=== PATIENT | female | born 1940 | race Caucasian/White ===

== ENCOUNTER → 2023-10-20 11:22 | Outpatient (REF) | payer MEDICARE, OTHER, SELFPAY | LOC: RAD 11:22 | PROVIDERS: ATTENDING PHYSICIAN Internal Medicine Critical Care Medicine; FAMILY PHYSICIAN Family Medicine | DX: J84.9 Interstitial pulmonary disease, unspecified (principal) | CPT/HCPCS: 71046 ==

== ENCOUNTER → 2024-05-11 11:11 | Outpatient (REF) | payer MEDICARE, OTHER, SELFPAY | LOC: RCS 11:11 | PROVIDERS: ATTENDING PHYSICIAN Internal Medicine Interventional Cardiology; FAMILY PHYSICIAN Family Medicine | DX: I35.0 Nonrheumatic aortic (valve) stenosis (principal) | CPT/HCPCS: 93306 ==

== ENCOUNTER → 2024-06-02 09:52 | Outpatient (REF) | payer MEDICARE, OTHER, SELFPAY | LOC: RAD 09:52 | PROVIDERS: ATTENDING PHYSICIAN Surgery Vascular Surgery; FAMILY PHYSICIAN Family Medicine | DX: I73.9 Peripheral vascular disease, unspecified (principal); I65.29 Occlusion and stenosis of unspecified carotid artery; I25.10 Atherosclerotic heart disease of native coronary artery without angina pectoris | CPT/HCPCS: 93880; 93922; 93925 ==

== ENCOUNTER 2024-06-19 13:46 | Inpatient (IN) | payer MEDICARE, OTHER, SELFPAY ==
[2024-06-19] VITALS (9 sets, daily range): BP systolic 130–164; BP diastolic 41–73; BMI 29.6
--- NOTE | 2024-06-19 10:23 | ED.GENMED ---
History of Present Illness
General
Chief Complaint: Breathing Problem
Time Seen by Provider: 06/19/24 10:10
History of Present Illness
History of Present Illness:
84-year-old female with history of COPD on 2 L O2 nighttime, hypertension, hyperlipidemia presenting to the emergency department for difficulty breathing. Patient reports symptoms for the past 4 days. Reports productive cough, denies fever.
Denies any previous admissions for her COPD. Today she did notice blood-tinged sputum, which prompted her to come to the hospital. When medics arrived, patient was satting in the 80s on her 2 L. Patient denying any chest pain. Patient denies any
known sick contacts. She denies abdominal pain or GI symptoms. She denies additional acute medical complaints
Past History
Past History
ED Past Medical History: CAD, Cancer, COPD, GERD, HTN, Hypercholesterolemia, Other (Peripheral vascular disease, TIA) and Other
ED Past Surgical History: Cholecystectomy, Gynecological (hysterectomy), Tonsilectomy, Urological and Other (right carotid endarterectomy in 2018, iliac stent placement twice in 2019)
Social History
Tobacco: Former smoker (distant cigarette use ending in 1986)
Alcohol: None
Drug: None
Personal: Other
Living: with family
Employment: Retired
Family History
Family History: Other (reviewed and Noncontributory)
Phy Exam
Physical Exam
Physical Exam:
General: Well-appearing, no clinical signs of dehydration, nontoxic and in no acute distress
HEENT: protecting airway
Neck: appears supple
CV: Normal heart rate, regular rhythm
Resp: Mild increased work of breathing, adequate air movement bilaterally without any expiratory wheezing
Abd: Soft and non-distended, no tenderness to palpation
Extremities: No deformities, no swelling, no erythema
Neuro: alert, no focal neurologic deficit
: deferred
Rectal: deferred
Psych: Normal affect
Skin: Intact
Scores
Heart Failure Risk
Heart Failure Risk Score: Yes
History of Stroke or TIA: No
History of intubation for respiratory distress: No
Heart rate on ED arrival >/= 110: No
SaO2 <90% on arrival on room air: Yes
HR >/=110 during 3min walk test (or too ill to perform test): Yes
ECG has acute ischemic changes: No
Urea >/=12mmol/L (BUN 33.6mg/dL): No
Serum CO2>/=35mmol/L: No
Troponin I or T elevated to GA Level (0.4mg/dL): No
NT-proBNP >/=5,000ng/L (5,000pg/ml): No
HF Risk Score: 3
Admission Status: HIGH RISK 15.9% Consider SNF treatment or admission to hospital
Sepsis
Sepsis Screening
Sepsis Assessment: Sepsis Ruled Out
Sepsis Screen
Sepsis Screen: Sepsis Ruled Out
Date: 06/19/24
Time: 17:22
Course
Orders/Labs/Results
Orders:
Orders
06/19/24 10:11
Electrocardiogram (*1) Urgent
Reason for Study: Other
Other Reason for Exam: Respiratory Distress
Cardiac Monitoring- Treatment ONCE
EKG- Treatment ONCE
IV Insert/Care/Rem.- Treatment PRN
CR Chest - 2 Views Urgent
Comment:
Reason For Exam: respiratory distress
O2 Therapy [RESP] Urgent
Titrate/Wean O2 to maintain O2 sat greater than (%): 93
Special Instructions: TO MAINTAIN CONTINUOUS O2 SATS >/= 93%
Pulse Ox/cont/shift [RESP] Urgent
Quantity: 1
Special Instructions: continuous pulse ox
06/19/24 10:22
Complete Blood Count/With Diff Urgent
Comprehensive Metabolic Panel Urgent
NT-proBNP Urgent
PT/INR [Prothrombin Time] Urgent
Troponin I Urgent
06/19/24 10:27
COVID-19 Antigen Urgent
Source: Nasal Swab
Influenza A+B Rapid Molecular Urgent
ESDRAS Source: Nasal Swab
Specimen Description:
06/19/24 11:41
Azithromycin 500 mg/250 ml [Zithromax Infusion] 500 mg in 250 ml IV NOW
CefTRIAXone [Rocephin] 1,000 mg IV NOW STA
Furosemide [Lasix] 40 mg IV ONCE ONE
06/19/24 13:07
Add On- LAB Urgent
Tests Added?: procalcitonin
06/19/24 13:25
Procalcitonin Urgent
Comment: ADD ON
06/19/24 13:33
Admit/Transfer Patient As Directed
Co-Sign Provider:
Level of Care: Inpatient admission
Assign to:: Telemetry
Physician / Group: Hospitalist
Diagnosis: respiratory distress
Reason for Telemetry: Subacute Heart Failure
Date to Stop Telemetry: 06/21/24
Time to Stop Telemetry: 11:00
Reason for Hospitalization: Respiratory distress
Expected length of stay greater than two midnights?: Yes
ELOS- Estimated Length of Stay in days: 3
I certify the patient meets the requirements for IP care: Yes
PRN Pain Medication Management As Directed
May give lesser potent ordered pain med per pt: Yes
preference::
Protocol:: Medication orders for pain may be administered in a
manner that supports deferring to patient preference
when the pt is:
- Requesting an ordered lesser potent pain medication.
Least to most potent pain medications are defined
as: acetaminophen < NSAID < tramadol < opioids
(morphine, oxycodone, hydromorphone).
- Requesting a lesser dose of the same medication IF
ORDERED.
- Requesting a less intrusive route of administration
if both routes are prescribed by the provider (PO <
IV).
06/19/24 13:36
Code Status As Directed
Resuscitation Status: Full Code
06/19/24 14:39
Troponin I Q6H
Comment: at admission & every 6 hours x 2 (3 total), ECG to be done with each level
Acetaminophen [Tylenol] 650 mg PO Q4HPRN PRN
Dicyclomine [Bentyl] 20 mg PO DAILYPRN PRN
Ipratropium/Albuterol Sulfate [Duoneb] 3 ml INH R Q4HPRN PRN
06/19/24 14:39
HF DIETARY CONSULT Routine
HF EDUCATOR CONSULT Routine
Comment:
Respiratory Culture/Gram Stain Routine
ESDRAS Source: Sputum
Specimen Description:
Activity As Directed
Activity Level: Out of Bed-Early Mobility
Activity As Directed
Activity Level: With Assistance
Intake/ Output As Directed
Frequency: Per unit guidelines
Patient Education As Directed
Type: CHF folder
Comment: give on admission. Document in Interdisciplinary Education record
Pneumatic Compression Sleeves As Directed
Type: Knee high
Sleep Apnea Assessment by RN As Directed
Comment:
Physician Instructions:
Vital Signs As Directed
Frequency: Per unit guidelines
Weight As Directed
Frequency: Daily
Type of Scale: Standing Scale
Comment: Daily morning weight. If unable to stand, use balanced bed scale.
Weight As Directed
Frequency: Once
Comment: on admission
Pulse Ox/cont/shift [RESP] Routine
Quantity: 1
Special Instructions: Daily pulse oximetry at rest. If greater than 92% at rest also obtain pulse oximetry
while ambulating as tolerated.
Pt Eval And Treat Routine
Treatment: eval gait
Activity Level: With Assistance
DX Deep Vein Thrombosis Video Routine
06/19/24 Dinner
Cholesterol Lowering
At Your Request: Limited Participation
Does patient need a safe tray?: No
Cholesterol Lowering: Sodium, 2 Gram
06/19/24 16:00
Dexamethasone Sod Phosphate [Decadron] 4 mg IV Q8
Furosemide [Lasix] 20 mg IV BID AT 0800,1600
HydrALAZINE [Apresoline] 25 mg PO TID
06/19/24 18:00
Atorvastatin [Lipitor] 40 mg PO QPM
06/19/24 20:00
Amlodipine [Norvasc] 5 mg PO BID
Guaifenesin [Mucinex] 600 mg PO Q12
Metoprolol Xl [Toprol Xl] 25 mg PO BID
06/19/24 20:39
Troponin I Q6H
Comment: at admission & every 6 hours x 2 (3 total), ECG to be done with each level
06/19/24 22:00
Ezetimibe [Zetia] 10 mg PO HS
06/20/24 02:39
Troponin I Q6H
Comment: at admission & every 6 hours x 2 (3 total), ECG to be done with each level
06/20/24 06:00
Basic Metabolic Panel IN AM
Complete Blood Count/No Diff IN AM
06/20/24 08:00
Aspirin Low Dose EC [Aspir Low (Enteric Coated)] 81 mg PO DAILY
Clopidogrel Bisulfate [Plavix] 75 mg PO DAILY
Furosemide [Lasix] 20 mg PO DAILY
Pantoprazole [Protonix] 40 mg PO DAILY
06/20/24 11:00
Losartan [Cozaar] 50 mg PO DAILY@1100
06/20/24 12:00
Azithromycin 500 mg/250 ml [Zithromax Infusion] 500 mg in 250 ml IV Q24H
CefTRIAXone [Rocephin] 1,000 mg IV Q24H
06/21/24 11:00
DC Protocol for Telemetry ONCE
Abnormal Lab Results
06/19/24
10:22
MCHC 32.8 L g/dL
(33.0-37.0)
Abs Immat Gran (auto) 0.1 H 10^3/uL
(0-0.05)
Absolute Neuts (auto) 7.9 H 10^3/uL
(1.4-6.5)
Absolute Lymphs (auto) 1.1 L 10^3/uL
(1.2-3.4)
Absolute Monos (auto) 0.9 H 10^3/uL
(0.1-0.6)
Neutrophils % 78.2 H %
(42.2-75.2)
Lymphocytes % 10.9 L %
(20.5-51.1)
BUN 25 H mg/dl
(7-17)
Total Bilirubin 1.9 H mg/dl
(0.2-1.3)
06/19/24 10:22
06/19/24 10:22
Vital Signs
Initial and Last Documented VS:
Initial Vital Signs
BP
130/73
06/19/24 10:11
Last Documented Vital Signs
Temp Pulse Resp BP Pulse Ox
98.6 F 61 18 145/56 94
06/19/24 15:35 06/19/24 16:21 06/19/24 15:35 06/19/24 16:21 06/19/24 17:05
MDM/Problems Addressed
MDM/Problems Addressed:
84-year-old female presenting for shortness of breath and cough. Vital signs on arrival significant for hypoxia.
On exam, patient stabilized on supplemental O2. Mild increased work of breathing, however does have adequate air movement. Does not appear to be in a COPD exacerbation. For this reason in the setting of productive cough, concern for possible
infectious pathology, viral versus bacterial pneumonia. EKG obtained, nonischemic. Plan for laboratory analysis, chest x-ray imaging, viral swabs
11:40 -viral swabs negative. Chest x-ray concerning for superimposed pneumonia on the right side versus pulmonary edema from congestive heart failure. BNP is elevated. Both are diagnostic considerations. In the setting of cough, will start
patient on antibiotics for community-acquired pneumonia. Will also administer dose of Lasix. Holding IV fluids for possible pulmonary edema, no criteria for sepsis or septic shock at this time. Plan for admission for increased oxygen requirements
and concern for pneumonia versus volume overload state
*EKG
Interpreted by ED Provider?: Yes
EKG Intrepretation Date: 06/19/24
EKG Intrepretation Time: 10:29
Interpretation: normal
Heart Rate: 61
Rate: normal
Rhythm: sinus
[place]: normal axis
Interval: normal interval
QRS Pattern: normal QRS
Ischemia: no ischemia
*Critical Care Note
Total Time (30-74mins, 75-104mins- exclusive of procedures): Not Applicable
ED Attending Note
-
Portions of this chart may have been created with voice recognition software.� Occasional wrong word or��sound alike� substitutions may have occurred due to the inherent limitations of voice recognition software.
Discharge Plan
Departure
Patient Disposition: Admit
Date of Disposition: 06/19/24
Time of Disposition: 11:45
Presentation/result/management discussed w/ accepting MD/DO: Hospitalist
Patient with high blood pressure during this ER visit?: No
Condition: Fair
Discharge Problem:
Pulmonary edema, Community acquired pneumonia, Hypoxia
Interventions
Interventions:
*Risk Screen - Suicide Last Done: 06/19/24 15:03
*General Assessment Last Done: 06/19/24 10:13
*Neglect/Abuse Screening Last Done: 06/19/24 10:13
ED- Fall Risk Assessment Last Done: 06/19/24 14:51
*ED COVID-19 Vaccine History Last Done: 06/19/24 10:13
*Nursing Disposition Last Done: 06/19/24 14:51
ED- Cardiac Assessment Last Done: 06/19/24 10:13
ED- Pulmonary Assessment Last Done: 12/01/24 10:13
Discharge Date and Time
Discharge Date/Time: 06/19/24 14:52
[2024-06-19 10:41] LABS: % Basophils 0.6 % (0-2); % Eosinophils 1.1 % (0-6); % Immature Granulocytes 0.5 % (0-0.5); % Lymphocytes 10.9 % (20.5-51.1); % Monocytes 8.7 % (1.7-9.3); % Neutrophils 78.2 % (42.2-75.2); Absolute Basophils 0.1 10^3/uL (0-0.2); Absolute Eosinophils 0.1 10^3/uL (0-0.7); Absolute Immature Granulocytes 0.1 10^3/uL (0-0.05); Absolute Lymphocytes 1.1 10^3/uL (1.2-3.4); Absolute Monocytes 0.9 10^3/uL (0.1-0.6); Absolute Neutrophils 7.9 10^3/uL (1.4-6.5); Hemoglobin 12.8 g/dL (12.0-16.0); INR 0.95; Mean Corp Hgb Conc. 32.8 g/dL (33.0-37.0); Mean Corpuscular Hgb 29.3 pg (27.0-31.0); Mean Corpuscular Volume 89.2 fL (81.0-99.0); Mean Platelet Volume 10.2 fL (7.4-10.4); Nucleated Red Blood Cells % 0 %; Platelet Count 306 10^3/uL (130-400); Red Blood Cell Count 4.37 10^6/uL (4.20-5.40); Red Cell Dist. Width 13.2 % (11.5-14.5); White Blood Cell Count 10.1 10^3/uL (4.8-10.8)
[2024-06-19 10:44] LABS: ALT (SGPT) 16 U/L (0-35); AST (SGOT) 28 U/L (14-36); Albumin 3.7 g/dl (3.5-5.0); Alkaline Phosphatase 102 U/L (38-126); Blood Urea Nitrogen 25 mg/dl (7-17); Calcium 9.4 mg/dl (8.4-10.2); Carbon Dioxide 22 mmol/L (22-30); Chloride 102 mmol/L (98-107); Estimated Creatinine Clearance 44 ml/min; Glucose 91 mg/dl (70-99); Potassium 4.2 mmol/L (3.5-5.1); Sodium 138 mmol/L (135-145); Total Bilirubin 1.9 mg/dl (0.2-1.3); Total Protein 6.6 g/dl (6.3-8.2); eGFR > 60.00
[2024-06-19 10:55] LABS: NT-proBNP 1830 pg/ml; Troponin I 0.012 ng/ml
[2024-06-19 10:56] LABS: COVID-19 Antigen Negative (Negative)
[2024-06-19] MEDS: ROCEPHIN 1000 MG IV (12:03)
[2024-06-19] MEDS: ZITHROMAX INFUSION 250 IV (12:04)
[2024-06-19] MEDS: LASIX 40 MG IV (12:04)
--- NOTE | 2024-06-19 13:09 | HPS.HSE ---
Family Physician
-
Family Physician: Teresita Martinez
Chief Complaint
-
Cough and weakness
History of Present Illness
84-year-old woman with a history of:
COPD on 2 L O2 nighttime,
hypertension,
hyperlipidemia
presents with difficulty breathing. Symptoms for the past 4 days. Reports productive cough, but denies fever and any previous admissions for her COPD. Today she also had blood-tinged sputum, EMS noted that she was satting in the 80s while on 2L.
She denies any chest pain, any known sick contacts, abdominal pain or GI symptoms or any additional acute medical complaints. At the time of my interview she was coughing, but was able to lie flat. She answered all questions appropriately.
Medical History
Past Medical History
Past Medical History: Reports Other
Additional Past Medical History:
CAD,
Cancer,
COPD,
GERD,
Hypercholesterolemia
TIA
Cholecystectomy,
hysterectomy
Tonsilectomy,
right carotid endarterectomy in 2018,
iliac stent placement twice in 2020
Dyslipidemia Cerebrovascular disease
Centrilobular emphysema
Essential (primary) hypertension
Nonrheumatic aortic (valve) stenosis
Spinal stenosis of lumbar region with neurogenic claudication
Osteopenia of multiple sites
Multiple thyroid nodules
PAD (peripheral artery disease)
Stenosis of carotid artery, unspecified laterality
Venous insufficiency
History of stroke
Pre-diabetes
Wax in ear
Interstitial lung disease
Restrictive lung disease
Mild obstructive sleep apnea
Occlusion and stenosis of bilateral carotid arteries
GERD without esophagitis
Snoring
History of tobacco abuse
Decreased diffusion capacity
Past Surgical History: Reports Other
Additional Past Surgical History:
See above
Social History
Tobacco: Non-smoker
Alcohol: None
Drug: None
Family History
Family History: Not pertinent
Allergies / Home Medications
Allergies reflects when Allergies were last updated in [employer].
Home Medications with original date entered in [facility]
Allergy/Medication List:
Allergies
Allergy/AdvReac Type Severity Reaction Status Date / Time
hydrocodone [From Vicodin] Allergy Unknown Verified 06/15/23 00:50
labetalol Allergy Unknown Verified 06/15/23 00:50
Home Medications
clopidogrel 75 mg tablet 75 mg PO DAILY #90 tabs 02/20/20
atorvastatin 40 mg tablet 40 mg PO QPM High cholesterol 11/30/20
ezetimibe 10 mg tablet 10 mg PO HS High cholesterol 11/30/20
amlodipine 5 mg tablet 5 mg PO BID Blood Pressure 06/15/23
furosemide 20 mg tablet (Lasix) 20 mg PO DAILY Fluid Retention/Swelling 06/15/23
hydralazine 25 mg tablet 25 mg PO TID Blood Pressure 06/15/23
losartan 50 mg tablet 50 mg PO DAILY Blood Pressure 06/15/23
metoprolol succinate 25 mg tablet,extended release 24 hr (Toprol XL) 25 mg PO BID Blood Pressure 06/15/23
aspirin 81 mg tablet,delayed release 81 mg PO DAILY 06/19/24
dicyclomine 20 mg tablet 20 mg PO DAILYPRN PRN intestinal spasms 06/19/24
pantoprazole 40 mg tablet,delayed release 40 mg PO DAILY 06/19/24
Review of Systems
-
History Source: Patient
A 12 point ROS was completed and negative except as noted: Yes
Physical Exam
Vital Signs
Vital Signs
Temp Pulse Resp BP Pulse Ox
97.8 F 61 18 141/54 94
06/19/24 10:13 06/19/24 12:04 06/19/24 11:06 06/19/24 12:04 06/19/24 11:06
Physical Exam
General: Well Developed, Well Nourished, No Apparent Distress and Respiratory Distress (frequent coughing)
HEENT: NormoCephalic, Nose Appears Normal and Ears Appear Normal
Respiratory: Wheezes, Rhonchi and Crackles
Cardiac: S1/S2 and Regular Rhythm
GI: Soft, Non Tender and Non Distended
Musculoskeletal: No Clubbing, No Cyanosis and No Edema
Skin: Warm and Dry; No Rash or Jaundice
Neuro: Awake, Alert, Oriented and AO x 3
Psych: Calm
Laboratory Results
-
06/19/24 10:22
06/19/24 10:22
Laboratory Results
PT 13.0 Sec (11.4-14.6) 06/19/24 10:22
INR 0.95 06/19/24 10:22
Total Bilirubin 1.9 mg/dl (0.2-1.3) H 06/19/24 10:22
AST 28 U/L (14-36) 06/19/24 10:22
ALT 16 U/L (0-35) 06/19/24 10:22
Alkaline Phosphatase 102 U/L (38-126) 06/19/24 10:22
Troponin I 0.012 ng/ml 06/19/24 10:22
Data Reviewed
-
Lab Data: Labs Reviewed by me
Impression/Plan
-
IMPRESSION:
84 woman with cough, increased O2 requirement, with probable CA-PNA. Significant findings:
BUN/Creat 25/0.8
BNP 1830 (Last one measured in 2022 326)
Covid (-)
Flu (-)
CXR: Diminished degree of inspiration. Congestive heart failure with asymmetric right upper lobe edema versus superimposed right upper lobe pneumonia.
Echo from 05/11/24:
CONCLUSIONS
Normal left ventricular chamber size. Normal left ventricular systolic
function. No gross regional wall motion abnormalities. Left ventricular
ejection fraction is 60-65% by visual assessment. Mild concentric left
ventricular hypertrophy. Stage II diastolic dysfunction suggestive of abnormal
relaxation and increased filling pressures.
Normal right ventricular size and function.
Mild aortic stenosis. Mild to moderate aortic regurgitation.
Compared to prior study dated 06/15/2023, mild aortic stenosis is now present
PLAN:
1. increased O2 requirement and cough, likely multifactorial, a mix of CA-PNA, COPD and CHF
For CA-PNA
ABX per protocol
Check pro-calcitonin
Cough med
For probable COPD exacerbation
Nebs
Steroids
For CHF (acute on chronic with preserved EF)
IV lasix
Tele
JAYLEN (given h/o CAD and extra load)
Recent echo on file, will not order a new one immediately
2. BUN/Creat > 20, 25/0.8
Recheck in am after diuresis today
3. Essential HTN - pressures in good range
Continue home meds
Full code
VCD for DVTp
[2024-06-19 13:59] LABS: Procalcitonin < 0.05 ng/ml (0.0-0.25)
--- NOTE | 2024-06-19 15:54 | CM ---
Patient seen at bedside.
IA completed.
Lives alone in a 1 story home, 0 steps to enter
PLOF: Independent, ambulates outside with a cane
DME: Cane, home 02 ([facility])
PCP: Teresita Martinez
Pharmacy: [facility] [address], [place]
PLAN: CM to follow for needs.
[2024-06-19] MEDS: DECADRON 4 MG IV ×2 (16:21→23:12)
[2024-06-19] MEDS: APRESOLINE 25 MG PO ×2 (16:21→22:33)
[2024-06-19] MEDS: LASIX 20 MG IV (16:21)
[2024-06-19] MEDS: LIPITOR 40 MG PO (16:21)
[2024-06-19] MEDS: NORVASC 5 MG PO (19:52)
[2024-06-19] MEDS: MUCINEX 600 MG PO (19:52)
[2024-06-19] MEDS: TOPROL XL 25 MG PO (19:55)
--- NOTE | 2024-06-19 20:00 | PTCARENOTE ---
Pt due for troponin. Pt hard stick and not able to get lab drawn after multiple attempts. Pt states she doesn't want to keep doing this and she doesn't need it done. Annalise MANJARREZ notified. Will attempt to draw troponin in AM with morning
labs. Will continue with current plan.
--- NOTE | 2024-06-19 22:34 | W.PN.UPDATE ---
Update Note
Progress Note Update
pt refusing repeat troponins
she is a difficult stick and multiple nurses have tried without success. pt refusing any more.
denies chest pain
Will try and add to am labs for now
[2024-06-19] MEDS: ZETIA 10 MG PO (22:38)
[2024-06-20 03:49] VITALS: BP 117/54
[2024-06-20 06:00] VITALS: BMI 28.3
[2024-06-20 07:41] VITALS: BP 137/66
[2024-06-20] MEDS: DECADRON 4 MG IV ×3 (08:26→23:19)
[2024-06-20] MEDS: ASPIR LOW (ENTERIC COATED) 81 MG PO (08:26)
[2024-06-20] MEDS: APRESOLINE 25 MG PO ×2 (08:26→17:16)
[2024-06-20] MEDS: PROTONIX 40 MG PO (08:27)
[2024-06-20] MEDS: TOPROL XL 25 MG PO ×2 (08:27→19:50)
[2024-06-20] MEDS: LASIX 20 MG IV ×2 (08:27→17:18)
[2024-06-20] MEDS: MUCINEX 600 MG PO ×2 (08:27→19:50)
[2024-06-20] MEDS: PLAVIX 75 MG PO (08:27)
[2024-06-20] MEDS: NORVASC 5 MG PO ×2 (08:27→19:50)
[2024-06-20 09:11] LABS: Hemoglobin 12.3 g/dL (12.0-16.0); Mean Corp Hgb Conc. 34.2 g/dL (33.0-37.0); Mean Corpuscular Hgb 29.5 pg (27.0-31.0); Mean Corpuscular Volume 86.3 fL (81.0-99.0); Mean Platelet Volume 9.8 fL (7.4-10.4); Platelet Count 293 10^3/uL (130-400); Red Blood Cell Count 4.17 10^6/uL (4.20-5.40); White Blood Cell Count 5.8 10^3/uL (4.8-10.8)
[2024-06-20 09:38] LABS: Troponin I < 0.012 ng/ml
[2024-06-20 11:43] VITALS: BP 108/47
[2024-06-20] MEDS: COZAAR 50 MG PO (12:53)
[2024-06-20] MEDS: STERILE WATER FOR INJECTION 10 ML IV (13:01)
[2024-06-20] MEDS: ROCEPHIN 1000 MG IV (13:02)
[2024-06-20] MEDS: ZITHROMAX INFUSION 250 IV (13:06)
--- NOTE | 2024-06-20 13:47 | CM ---
Patient seen at bedside with physician. Patient stated that she does not feel ready for discharge. Patient plan is for discharge home with VN vs home with no needs. CM will continue to follow for discharge planning needs.
Plan; home with VN vs home with no needs.
--- NOTE | 2024-06-20 13:53 | W.PN.HOSP.TC ---
Today's Communication/Plan
-
consider pulm/cards consults
hold on echo
cont diuresis
stop ABX
Assessment / Plan
Assessment / Plan
pt is an 84 year old female
acute on chronic hypoxemic resp failure--wears 2L O2 at nighttime--now during the day--possible HFpEF exacerbation--cannot r/o superimposed acute COPD exacerbation--doubt PNA--procalcitonin negative--ECHO just done 05/11/24, will not
repeat--consider cards consult--cont IV lasix for diuresis--cont nebs/steroids--can stop ABX for now--has HX of interstitial/restrictive lung disease per PMH
essential HTN--cont amlodipine, hydralazine, IV lasix, losartan, and toprol XL
HLD--cont zetia and atorvastatin
hx of CVA in past--cont asa/plavix
IBS--bentyl PRN for spasms
GERD--PPI
DVT proph
code status -- FULL CODE
Anticipated Discharge: > 48 hours
Subjective/Interval History
-
Date of Service: June 20, 2024
pt still SOB
Objective Data
-
Labs:
Laboratory Results
06/20/24 06/20/24
08:56 09:41
WBC 5.8
Hgb 12.3
Hct 36.0 L
Plt Count 293
Sodium Cancelled Pending
Potassium Cancelled Pending
Chloride Cancelled Pending
Carbon Dioxide Cancelled Pending
BUN Cancelled Pending
Creatinine Cancelled Pending
Glucose Cancelled Pending
Calcium Cancelled Pending
Vital Signs:
max temp for 24 hours
06/20/24
07:41
Temp 98.5 F
Vital Signs
Temp Pulse Resp BP Pulse Ox
97.7 F 60 18 108/47 92
06/20/24 11:43 06/20/24 12:53 06/20/24 11:43 06/20/24 12:53 06/20/24 11:43
I&O
06/19/24 06/20/24 06/21/24
06:59 06:59 06:59
Intake Total 600 / 600
Balance 600 / 600
Review of Systems
-
All other systems: Reviewed and negative
Respiratory: Reports Trouble Breathing
Physical Exam
-
General: Well Developed, Well Nourished and No Apparent Distress
HEENT: Normocephalic, Atraumatic and Oxygen
Respiratory: Crackles
Cardiac: Regular Rhythm, S1/S2 and Murmur
GI: Soft, Nontender, Nondistended and Normal Bowel Sounds
Musculoskeletal: No Clubbing, No Cyanosis and No Edema
Neuro: Awake and Alert
Psych: Calm
[2024-06-20 15:07] VITALS: BP 113/86
[2024-06-20 17:17] LABS: Blood Urea Nitrogen 50 mg/dl (7-17); Calcium 9.2 mg/dl (8.4-10.2); Carbon Dioxide 25 mmol/L (22-30); Chloride 99 mmol/L (98-107); Estimated Creatinine Clearance 32 ml/min; Glucose 189 mg/dl (70-99); Potassium 4.1 mmol/L (3.5-5.1); Sodium 137 mmol/L (135-145); eGFR 49.24
[2024-06-20] MEDS: LIPITOR 40 MG PO (17:19)
[2024-06-20 19:34] VITALS: BP 104/51
[2024-06-20] MEDS: ZETIA 10 MG PO (21:45)
[2024-06-20] MEDS: APRESOLINE PO (21:52)
[2024-06-20 23:20] VITALS: BP 104/41
[2024-06-21] VITALS (7 sets, daily range): BP systolic 93–125; BP diastolic 41–78; PULSE 66; O2SAT 95; BMI 28.4
[2024-06-21 05:18] LABS: Mean Corp Hgb Conc. 32.4 g/dL (33.0-37.0); Mean Corpuscular Hgb 29.2 pg (27.0-31.0); Mean Platelet Volume 10.5 fL (7.4-10.4); Platelet Count 341 10^3/uL (130-400); Red Blood Cell Count 4.11 10^6/uL (4.20-5.40); White Blood Cell Count 11.7 10^3/uL (4.8-10.8)
[2024-06-21 05:41] LABS: Blood Urea Nitrogen 61 mg/dl (7-17); Calcium 9.3 mg/dl (8.4-10.2); Carbon Dioxide 23 mmol/L (22-30); Chloride 102 mmol/L (98-107); Estimated Creatinine Clearance 32 ml/min; Glucose 156 mg/dl (70-99); Magnesium 2.5 mg/dl (1.6-2.3); Potassium 4.3 mmol/L (3.5-5.1); Sodium 140 mmol/L (135-145); eGFR 49.24
[2024-06-21] MEDS: PROTONIX 40 MG PO (09:10)
[2024-06-21] MEDS: NORVASC 5 MG PO ×2 (09:10→21:35)
[2024-06-21] MEDS: APRESOLINE 25 MG PO ×2 (09:10→17:03)
[2024-06-21] MEDS: MUCINEX 600 MG PO ×2 (09:10→21:36)
[2024-06-21] MEDS: ASPIR LOW (ENTERIC COATED) 81 MG PO (09:10)
[2024-06-21] MEDS: TOPROL XL 25 MG PO (09:10)
[2024-06-21] MEDS: PLAVIX 75 MG PO (09:11)
[2024-06-21] MEDS: DECADRON 4 MG IV ×2 (09:11→17:03)
[2024-06-21] MEDS: LASIX 20 MG IV (09:11)
[2024-06-21] MEDS: COZAAR 50 MG PO (11:31)
--- NOTE | 2024-06-21 13:58 | W.PN.HOSP.TC ---
Today's Communication/Plan
-
consult cards/pulm
weights down and on steroids, lasix--no improvement
Assessment / Plan
Assessment / Plan
pt is an 84 year old female
acute on chronic hypoxemic resp failure--wears 2L O2 at nighttime--now during the day--possible HFpEF exacerbation--cannot r/o superimposed acute COPD exacerbation--doubt PNA, stopped abx--procalcitonin negative--ECHO just done 05/11/24, will not
repeat-- cards/pulm consult--cont IV lasix for diuresis, weights down--cont nebs/steroids---has HX of interstitial/restrictive lung disease per PMH--would keep pulse ox > 92%, wean O2 as able
essential HTN--cont amlodipine, hydralazine, IV lasix, losartan, and toprol XL
HLD--cont zetia and atorvastatin
hx of CVA in past--cont asa/plavix
IBS--bentyl PRN for spasms
GERD--PPI
DVT proph
code status -- FULL CODE
Anticipated Discharge: 24 - 48 hours
Subjective/Interval History
-
Date of Service: June 21, 2024
pt NO better despite steroids and diuretics
Objective Data
-
Labs:
Laboratory Results
06/21/24
04:44
WBC 11.7 H
Hgb 12.0
Hct 37.0
Plt Count 341
Sodium 140
Potassium 4.3
Chloride 102
Carbon Dioxide 23
BUN 61 H
Creatinine 1.1 H
Glucose 156 H
Calcium 9.3
Vital Signs:
Selected Entries
06/19/24
10:13 06/21/24
04:07 06/21/24
05:30
Temp 97.9 F
Actual Weight 68.7 kg 65.969 kg
Vital Signs
Temp Pulse Resp BP Pulse Ox
97.6 F 60 20 125/78 93
06/21/24 11:18 06/21/24 11:18 06/21/24 11:18 06/21/24 11:18 06/21/24 11:18
I&O
06/20/24 06/21/24 06/22/24
06:59 06:59 06:59
Intake Total 600 / 600 1120 / 1120
Balance 600 / 600 1120 / 1120
Review of Systems
-
Respiratory: Reports Trouble Breathing
Physical Exam
-
General: Well Developed, Well Nourished and No Apparent Distress
HEENT: Normocephalic and Atraumatic
Respiratory: Decreased Breath Sounds; Negative Wheezes or Crackles
Cardiac: Regular Rhythm and S1/S2
GI: Soft, Nontender, Nondistended and Normal Bowel Sounds
Musculoskeletal: No Clubbing, No Cyanosis and No Edema
Neuro: Awake and Alert
--- NOTE | 2024-06-21 14:02 | CM ---
Patient seen at bedside with physician. Patient c/o that she does not feel much better. Patient for further assessment, per physician. Patient has home O2 at night, but currently is on O2 /. CM will continue to follow for discharge planning needs.
Plan; home with VN/ watch for home O2 needs.
--- NOTE | 2024-06-21 15:29 | CON.CAR ---
Addendum entered and electronically signed by Chapin Abbasi MD 06/21/24 16:13:
Patient seen and examined
Agree with [facility] Brian's note and assessment
[facility] Brian's plan
Examination:
Physical Exam
General: no apparent distress, not acutely ill
Neck: supple. no meningeal signs. normal psoterior pharynx
Heart: s1/s2 regular rate and rhythm, no murmur. equal radial pulses.
Lungs: no acute respiratory distress. clear bilaterally
Abdomen: normal bowel sounds. not tender. no CVAT
Neuro: alert and oriented. no focal neurological deficits
Skin: no rash
Psychiatric: well kept. interactive and cooperative
Extremities: no edema. no calf tenderness. negative homans. good distal pulses
Assessment:
Presentation with SOB
Acute on chronic hypoxic respiratory failure
Acute COPD exacerbation
Concern for PNA
Emphysema/Restrictive lung disease, chronically on 2L NC nocturnally
PAD
known TYPE CUTTER LICA and s/p right CEA 10/2017
s/p iliac stents 08/2019 and 02/2020Chronic Plavix therapy for PAD and h/o CVA
h/o CVA
HTN
Multiple medication intolerances
Hyperlipidemia
Mild to mod aortic insufficiency without stenosis by echo 05/26/23
h/o breast cancer with lumpectomy and radiation
ECHO 05/11/24: EF 60-65%, mild cLVH, stage 2 diastolic dysfunction, mild , mild to mod AR
Plan:
-Patient presents with shortness of breath. She is being treated for possible pneumonia, acute COPD exacerbation, as well as heart failure. Cardiology consulted to evaluate if felt to have component of heart failure as not improved with IV Lasix
-She appears to be dry as evidenced by drop in blood pressure trends, as well as bump in BUN/creatinine. Would hold further IV Lasix and consider resuming outpatient p.o. Lasix 20 mg daily as of , 06/23/2024 pending BUN/Cr trends
-recent echo from 04/2024 with results as above
-Recommend pulmonary evaluation. continue treatment of COPD/PNA per primary service
-may need continuous supp O2 moving forward. eval for home O2 prior to DC
-follow BP trends and resume OP hydralazine as able
-OP cardiac follow up as planned
-d/w nursing. d/w patient and daughter at bedside
Original Note:
Consultation
Consultation Request
Date/Time Consultation Performed: 06/21/24
Requesting Provider: Dr. Yeh
Performing Provider: Criss Brian PA-C for Dr. Abbasi
Reason for Consultation: SOB
Medical History
-
Chief Complaint: SOB
History of Present Illness:
Patient is an 84 yo F with PMH of PAD status post right CEA and iliac stenting, history of CVA on chronic dual antiplatelet therapy with aspirin and Plavix, hypertension, hyperlipidemia, mild to moderate AI, emphysema on 2 L nocturnal supplemental
O2 who presented to [facility] with worsening dyspnea on exertion over the last month. She reports even with doing things such as bending down she noted she was winded. She reports compliance with p.o. Lasix 20 mg daily. proBNP 1830 on
arrival. CXR read as possible CHF vs superimposed RUL PNA. She was admitted and being treated for possible CHF exacerbation in addition to COPD exacerbation and possible pneumonia. Cardiology consulted to evaluate component of acute CHF as patient
does not feel improvement in breathing with current treatments. Denies chest discomfort. Denies weight gain. Reports chronic right lower extremity edema in the setting of known PAD. Last echo from April with preserved EF, mild to moderate AI.
PMH:
PAD
known TYPE CUTTER LICA and s/p right CEA 10/2017
s/p iliac stents 08/2019 and 02/2020
Chronic Plavix therapy for PAD and h/o CVA
h/o CVA
HTN
Multiple medication intolerances
Hyperlipidemia
Mild to mod aortic insufficiency without stenosis by echo 05/26/23
Emphysema, chronically on 2L NC nocturnally
h/o breast cancer with lumpectomy and radiation
Past Medical History
Past Medical History: Other (in HPI)
Past Surgical History: Gynecological (hysterectomy, lumpectomy), Tonsilectomy and Other (s/p right CEA 10/19/17)
Social History
Tobacco: Former Smoker
Living: Alone
Employment: Retired
Family History
Family History: CAD
Allergies / Home Medications
Allergy/AdvReac Type Severity Reaction Status Date / Time
hydrocodone [From Vicodin] Allergy Unknown Verified 06/15/23 00:50
labetalol Allergy Unknown Verified 06/15/23 00:50
�Medication �Instructions �Recorded �Confirmed �Type
clopidogrel 75 mg tablet 75 mg PO DAILY #90 tabs 02/20/20 06/19/24 Rx
atorvastatin 40 mg tablet 40 mg PO QPM High cholesterol 11/30/20 06/19/24 History
ezetimibe 10 mg tablet 10 mg PO HS High cholesterol 11/30/20 06/19/24 History
amlodipine 5 mg tablet 5 mg PO BID Blood Pressure 06/15/23 06/19/24 History
furosemide 20 mg tablet (Lasix) 20 mg PO DAILY Fluid 06/15/23 06/19/24 History
Retention/Swelling
hydralazine 25 mg tablet 25 mg PO TID Blood Pressure 06/15/23 06/19/24 History
losartan 50 mg tablet 50 mg PO DAILY@1100 Blood Pressure 06/15/23 06/19/24 History
metoprolol succinate 25 mg 25 mg PO BID Blood Pressure 06/15/23 06/19/24 History
tablet,extended release 24 hr
(Toprol XL)
aspirin 81 mg tablet,delayed 81 mg PO DAILY 06/19/24 06/19/24 History
release
dicyclomine 20 mg tablet 20 mg PO DAILYPRN PRN intestinal 06/19/24 06/19/24 History
spasms
pantoprazole 40 mg tablet,delayed 40 mg PO DAILY 06/19/24 06/19/24 History
release
Review of Systems
-
History Source: Patient and Family
All other systems: Negative unless noted
Physical Exam
Vital Signs
Temp Pulse Resp BP Pulse Ox
97.8 F 63 20 115/59 94
06/21/24 15:14 06/21/24 15:14 06/21/24 15:14 06/21/24 15:14 06/21/24 15:14
Lab Results
06/21/24 04:44
06/21/24 04:44
Troponin I < 0.012 ng/ml 06/20/24 08:56
[facility] Pept 1830 pg/ml 06/19/24 10:22
Physical Exam
General: No Apparent Distress, Comfortable and Other (on supp O2)
HEENT: Normocephalic, Anicteric and Moist Mucous Membranes
Respiratory: Crackles (B/L bases) and Non Labored Respirations
Cardiac: S1/S2, Regular Rhythm and Murmur
GI: Soft, Non Tender, Non Distended and Normal Bowel Sounds
Musculoskeletal: No Clubbing, No Cyanosis and No Edema
Skin: Warm and Dry
Neuro: AO x 3
Impression / Plan
-
Primary Farmworker Fur: Dr. Richards
Assessment:
Presentation with SOB
Acute on chronic hypoxic respiratory failure
Acute COPD exacerbation
Concern for PNA
Emphysema/Restrictive lung disease, chronically on 2L NC nocturnally
PAD
known TYPE CUTTER LICA and s/p right CEA 10/2017
s/p iliac stents 08/2019 and 02/2020
Chronic Plavix therapy for PAD and h/o CVA
h/o CVA
HTN
Multiple medication intolerances
Hyperlipidemia
Mild to mod aortic insufficiency without stenosis by echo 05/26/23
h/o breast cancer with lumpectomy and radiation
ECHO 05/11/24: EF 60-65%, mild cLVH, stage 2 diastolic dysfunction, mild , mild to mod AR
Plan:
-Patient presents with shortness of breath. She is being treated for possible pneumonia, acute COPD exacerbation, as well as heart failure. Cardiology consulted to evaluate if felt to have component of heart failure as not improved with IV Lasix
-She appears to be dry as evidenced by drop in blood pressure trends, as well as bump in BUN/creatinine. Would hold further IV Lasix and consider resuming outpatient p.o. Lasix 20 mg daily as of , 06/23/2024 pending BUN/Cr trends
-recent echo from 04/2024 with results as above
-Recommend pulmonary evaluation. continue treatment of COPD/PNA per primary service
-may need continuous supp O2 moving forward. eval for home O2 prior to DC
-follow BP trends and resume OP hydralazine as able
-OP cardiac follow up as planned
-d/w nursing. d/w patient and daughter at bedside
Data Reviewed
-
EKG: Tracing Personally Visualized and interpreted
Radiology: Report Reviewed by me
Medical Tests (Nuc Med, Echo etc): Report Reviewed by me
Labs: Labs Reviewed by me
Old Records: Reviewed
[2024-06-21] MEDS: LIPITOR 40 MG PO (17:03)
[2024-06-21] MEDS: ZETIA 10 MG PO (21:34)
[2024-06-21] MEDS: TOPROL XL PO (21:35)
[2024-06-21] MEDS: APRESOLINE PO (21:36)
[2024-06-22] MEDS: DECADRON 4 MG IV ×3 (00:07→20:40)
[2024-06-22 03:48] VITALS: BP 125/48
[2024-06-22 05:41] LABS: Hematocrit 34.8 % (37.0-47.0); Hemoglobin 11.5 g/dL (12.0-16.0); Mean Corpuscular Hgb 29.6 pg (27.0-31.0); Mean Corpuscular Volume 89.7 fL (81.0-99.0); Mean Platelet Volume 10.3 fL (7.4-10.4); Platelet Count 324 10^3/uL (130-400); Red Blood Cell Count 3.88 10^6/uL (4.20-5.40); Red Cell Dist. Width 13.2 % (11.5-14.5); White Blood Cell Count 9.5 10^3/uL (4.8-10.8)
[2024-06-22 05:42] VITALS: BMI 28.2
[2024-06-22 05:50] LABS: Blood Urea Nitrogen 67 mg/dl (7-17); Calcium 9.1 mg/dl (8.4-10.2); Carbon Dioxide 26 mmol/L (22-30); Chloride 106 mmol/L (98-107); Estimated Creatinine Clearance 32 ml/min; Glucose 151 mg/dl (70-99); Magnesium 2.7 mg/dl (1.6-2.3); Potassium 4.5 mmol/L (3.5-5.1); Sodium 142 mmol/L (135-145); eGFR 49.24
[2024-06-22] MEDS: ASPIR LOW (ENTERIC COATED) 81 MG PO (08:06)
[2024-06-22] MEDS: MUCINEX 600 MG PO ×2 (08:06→20:39)
[2024-06-22] MEDS: APRESOLINE 25 MG PO ×3 (08:06→20:40)
[2024-06-22] MEDS: PLAVIX 75 MG PO (08:06)
[2024-06-22] MEDS: PROTONIX 40 MG PO (08:06)
[2024-06-22] MEDS: NORVASC 5 MG PO ×2 (08:07→20:40)
[2024-06-22] MEDS: TOPROL XL PO ×2 (08:08→20:40)
[2024-06-22 09:00] VITALS: BP 118/50
--- NOTE | 2024-06-22 10:32 | CON.PUL ---
Consultation
Consultation Request
Date/Time Consultation Requested: 06/22/2024-8 AM
Date/Time Consultation Performed: 06/22/2024-8:30 AM
Requesting Provider: Hospitalist
Performing Provider: Dr. Beasley
Reason for Consultation: Shortness of breath
Medical History
-
Chief Complaint: Shortness of breath
History of Present Illness:
84-year-old female who is underlying COPD followed by Dr Hong on chronic oxygen at nighttime but no inhalers who also has hypertension, hyperlipidemia, presented with increasing shortness of breath felt to be pneumonia, COPD exacerbation and
possible heart failure-pulmonary consulted for shortness of breath/COPD 06/22/2024.. Patient states that she does feel better. She has chronic dyspnea on exertion. She denies itching, chest pain, chest tightness, mucous, pleurisy, abdominal pain,
nausea, lower extremity swelling or focal weakness.
Past Medical History
Past Medical History: None ( CAD. COPD on 2 L oxygen at night, no inhalers. ILD. DANIELA. GERD. Hyperlipidemia. TIA. Hypertension. PAD. Thyroid nodules. Osteopenia. Spinal stenosis. Venous insufficiency. History CVA. Prediabetes.)
Social History
Tobacco: Former Smoker ( 2.5 packs per day �30 years, quit 1984)
Alcohol: None
Drug: None
Living: With Family
Occupational Exposures: . No known asbestos exposure
Environmental Exposures: . No known tuberculosis exposure
Family History
Family History: Other (. Father-premature CAD. Mother-CVA, CHF and CAD)
Allergies / Home Medications
Allergies
Allergy/AdvReac Type Severity Reaction Status Date / Time
hydrocodone [From Vicodin] Allergy Unknown Verified 06/15/23 00:50
labetalol Allergy Unknown Verified 06/15/23 00:50
Home Medications
�Medication �Instructions �Recorded �Confirmed �Last Taken �Type
clopidogrel 75 mg tablet 75 mg PO DAILY #90 tabs 02/20/20 06/19/24 06/19/24 Rx
atorvastatin 40 mg tablet 40 mg PO QPM High cholesterol 11/30/20 06/19/24 06/19/24 History
ezetimibe 10 mg tablet 10 mg PO HS High cholesterol 11/30/20 06/19/24 06/18/24 History
amlodipine 5 mg tablet 5 mg PO BID Blood Pressure 06/15/23 06/19/24 06/19/24 History
furosemide 20 mg tablet (Lasix) 20 mg PO DAILY Fluid 06/15/23 06/19/24 06/19/24 History
Retention/Swelling
hydralazine 25 mg tablet 25 mg PO TID Blood Pressure 06/15/23 06/19/24 06/19/24 History
losartan 50 mg tablet 50 mg PO DAILY@1100 Blood Pressure 06/15/23 06/19/24 06/18/24 History
metoprolol succinate 25 mg 25 mg PO BID Blood Pressure 06/15/23 06/19/24 06/19/24 History
tablet,extended release 24 hr
(Toprol XL)
aspirin 81 mg tablet,delayed 81 mg PO DAILY 06/19/24 06/19/24 06/19/24 History
release
dicyclomine 20 mg tablet 20 mg PO DAILYPRN PRN intestinal 06/19/24 06/19/24 Unknown History
spasms
pantoprazole 40 mg tablet,delayed 40 mg PO DAILY 06/19/24 06/19/24 06/19/24 History
release
Review of Systems
-
Unable to Obtain full review of systems at this time due to: Other ( per HPI)
Vitals / Labs / Diagnostic Testing
Vital Signs
Temp Pulse Resp BP Pulse Ox
97.5 F 56 18 118/50 93
06/22/24 09:00 06/22/24 09:00 06/22/24 09:00 06/22/24 09:00 06/22/24 09:00
Lab Data
06/22/24 04:53
06/22/24 04:53
Microbiology
06/19/24 10:27 Nasal Swab Influenza Types A & B (CHRISTOPHER) - Final
Negative for Influenza A & B, NAAT
Negative results must be combined with clinical observations
and patient history.
Nucleic Acid Amplification test (NAAT)performed on the
[employer] NOW platform.
Diagnostic Testing:
Physical Exam
-
HEENT: Normocephalic, Anicteric and Moist Mucous Membranes
Cardiovascular: Regular Rhythm and Murmur
Respiratory: Wheeze, Rales, Rhonchi (n), Non-Labored Respirations and Accessory Resp Muscle Use (n)
GI: Soft, Non Distended and Non Tender
Neurology: Awake, Alert and No Motor Deficits
Skin: Warm and Good Color
General: Respiratory Distress (n) and Comfortable
Assessment
-
84-year-old female who is underlying COPD followed by Dr Hong on chronic oxygen at nighttime but no inhalers who also has hypertension, hyperlipidemia, presented with increasing shortness of breath felt to be pneumonia, COPD exacerbation and
possible heart failure-pulmonary consulted for shortness of breath/COPD 06/22/2024.
Shortness of breath.
Bronchitis versus early pneumonia
COPD with mild acute exacerbation.
CHF-acute on top of chronic preserved EF.
Leukocytosis-WBC 11.7.
Jxjyxg-oyoseaxhfk-jdsipcwmds 11.5.
CLAUDIA
Hyperglycemia
Conditions present prior to admission:
CAD.
COPD on 2 L oxygen at night, no inhalers.
ILD.
DANIELA.
GERD.
Hyperlipidemia.
TIA.
Hypertension.
PAD.
Thyroid nodules.
Osteopenia.
Spinal stenosis.
Venous insufficiency.
History CVA.
Prediabetes.
Breast cancer/lumpectomy/XRT.
Migraines.
Cervical cancer.
Hysterectomy. Tonsillectomy. Right carotid endarterectomy 2017. Skin most surgery 2020. RUE pseudoaneurysm repair. Cholecystectomy.
Plan
Respiratory decompensation, likely a combination of infection, COPD, as well as CHF.
Supplemental oxygen as needed.
Nebulizers as needed.
Aspiration precautions.
Mucus clearing devices..
Mucolytic's
Decadron 4 mg IV every 8 hours-begin to reduce
Diuresis as tolerated.
Monitor intake/output, renal function, lower extremity edema.
Replace electrolytes as needed.
Cardiology consultation noted-correspondence reviewed-
Check cultures.
Observe off antibiotics.
Low threshold for antibiotic initiation
Follow leukocytosis
Monitor hemoglobin.
Transfuse if needed.
DVT prophylaxis
Nutrition
Early mobilization
Patient last saw Dr. Hong on 10/20/2023-will recommend appointment after this discharge
Diagnostic data:
Chest x-ray 06/22/23-moderate to severe changes of emphysema, small bilateral pleural effusions.
CT chest 06/22/23-minimal right pleural effusion, emphysematous changes,
Chest x-ray 06/19/24-CHF with possible right upper lobe pneumonia
CT chest 06/22/23: negative PE. Small right pleural effusion. Evidence of emphysema with bullae bilaterally. Lower lobe opacities, slightly increased compared to September 2022, suspected atelectasis per my review. 1.7 cm thyroid nodule
������CT chest 10/03/22: negative PE. mild emphysema and interstitial changes. interstitial changes slightly worse compared to 2020
�������CXR 05/19/21:small left pleural effusion with chronic lung changes, no acute findings
�������CT chest 11/01/20: mild apical emphysema, subpleural interstitial disease, right apical pleural thickening. Slightly worse compared to 2016 per report. No significant adenopathy
�������CXR 05/19/19: moderate interstitial disease, slowly progressive compared to 2016 and 2018, decreased lung volumes
�������CXR 10/09/17: no acute findings. She has cardiomegaly and mild interstitial changes bilaterally.
�������CT chest 10/31/15: reveals mild bilateral patchy ground glass changes with mild pleural thickening and emphysema.
�������Doppler ultrasound 08/15/16: no evidence of left lower extremity DVT CXR 05/19/21:small left pleural effusion with chronic lung changes, no acute findings
�������CT chest 11/01/20: mild apical emphysema, subpleural interstitial disease, right apical pleural thickening. Slightly worse compared to 2016 per report. No significant adenopathy
�������CXR 05/19/19: moderate interstitial disease, slowly progressive compared to 2016 and 2018, decreased lung volumes
�������CXR 10/09/17: no acute findings. She has cardiomegaly and mild interstitial changes bilaterally.
�������CT chest 10/31/15: reveals mild bilateral patchy ground glass changes with mild pleural thickening and emphysema.
�������Doppler ultrasound 08/15/16: no evidence of left lower extremity DVT.
Echo 06/15/23: Mild to moderate mitral regurgitation, normal biventricular function, PA pressure 43, moderate aortic regurgitationyour pressure is decreased from 64 when compared to 05/30/23 Echo 05/08/20: normal biventricular function. Mild aortic
insufficiency, PASp 31
�������Echo 06/22/17: reveals normal biventricular function, moderate mitral regurgitation, and aortic regurgitation, PA pressure 31
Echocardiogram 05/11/24-EF 60-65%, stage II diastolic dysfunction, mild aortic stenosis
PFT 07/02/23: FVC 1.46/76%, FEV1 1.22/87%, ratio 84. TLC 2.40/56%, DLCO 4.66/28%. Moderate restriction with severe gas exchange defect. This is stable
�������PFT 11/10/22: FVC 1.37/70%, FEV1 1.14/80%, ratio 83. TLC 2.41/56%, DLCO 4.56/27%. Moderate restriction with severe gas exchange defect. Compared to 2021, stable. This has worsened compared 2018
�������PFT 10/18/21: FVC 1.55/77%, FEV1 1.26/86%, ratio 81. TLC 2.64/62%, DLCO 6.3/37%.. When compared to 2019, DLCO is decreased from 8.27-6.30.
�������[place] 06/17/21: FVC 1.45/71%, FEV1 1.22/81%, ratio 84. There is mild reactive airways disease.
�������[place] 11/05/20: FVC 1.57/75%, FEV1 1.22/79%, ratio 83
�������[place] 05/08/20: FVC 1.54/72%, FEV1 1.35/86%, ratio 88 When compared to prior PFT, FVC has decreased from 1.70-1.54 in the last year, likely insignificant.
�������PFT 05/05/19: FVC 1.70/81%, FEV1 1.40/92%,Ratio 84, TLC 2.73/64%, DLCO 8.27/48%. When compared to prior study, FEV1 has slightly decreased.
�������PFT 06/02/17: FVC 1.83/83%, FEV1 1.55/95% ratio 85, TLC 3.45/81%, and DLCO 7.73/44% predicted. When compared to prior pulmonary function test, lung capacity has improved, diffusion capacity decreased.
Data Reviewed
-
PFT: Report reviewed by me
EKG: Report reviewed by me
Radiology: Report reviewed by me
CT Scan: Report reviewed by me
Ultrasound: Report reviewed by me
Medical Tests (Nuc Med, Echo etc): Report reviewed by me
Total Time Spent with Patient (in minutes): 65
--- NOTE | 2024-06-22 10:45 | W.PN.CARDCBS ---
Today's Communication / Plan
-
Resume p.o. Lasix on June 24 if BUN�creatinine trends stabilize or improve
We will sign off please call with further questions
Impression / Plan
-
Primary Database Manager: Dr. Richards
Assessment:
Presentation with SOB
Acute on chronic hypoxic respiratory failure
Acute COPD exacerbation
Concern for PNA
Emphysema/Restrictive lung disease, chronically on 2L NC nocturnally
PAD
known [employer] LICA and s/p right CEA 10/2017
s/p iliac stents 08/2019 and 02/2020
Chronic Plavix therapy for PAD and h/o CVA
h/o CVA
HTN
Multiple medication intolerances
Hyperlipidemia
Mild to mod aortic insufficiency without stenosis by echo 05/26/23
h/o breast cancer with lumpectomy and radiation
ECHO 05/11/24: EF 60-65%, mild cLVH, stage 2 diastolic dysfunction, mild , mild to mod AR
Plan:
-Given her response to Lasix I suspect she was euvolemic and the IV Lasix doses made her hypovolemic. BUN appears to be peaking with stable creatinine and she feels well from a dyspnea perspective.
-She appears to be dry as evidenced by drop in blood pressure trends, as well as bump in BUN/creatinine. Would hold further IV Lasix and consider resuming outpatient p.o. Lasix 20 mg daily as of , 06/23/2024 pending BUN/Cr trends
-recent echo from 04/2024 with results as above
-Recommend pulmonary evaluation. continue treatment of COPD/PNA per primary service
-may need continuous supp O2 moving forward. eval for home O2 prior to DC
-follow BP trends and resume OP hydralazine as able
-OP cardiac follow up as planned
-We will sign off please call with further questions
Progress Note - Database Manager
Subjective
Date of Service: June 22, 2024
Breathing improved
Objective
Labs:
06/22/24 04:53
06/22/24 04:53
Labs
Hgb 11.5 g/dL (12.0-16.0) L 06/22/24 04:53
Hct 34.8 % (37.0-47.0) L 06/22/24 04:53
Plt Count 324 10^3/uL (130-400) 06/22/24 04:53
PT 13.0 Sec (11.4-14.6) 06/19/24 10:22
INR 0.95 06/19/24 10:22
Sodium 142 mmol/L (135-145) 06/22/24 04:53
Potassium 4.5 mmol/L (3.5-5.1) 06/22/24 04:53
BUN 67 mg/dl (7-17) H 06/22/24 04:53
Creatinine 1.1 mg/dL (0.6-1.0) H 06/22/24 04:53
Glucose 151 mg/dl (70-99) H 06/22/24 04:53
Troponins
06/19/24 06/19/24 06/19/24
10:22 14:39 20:39
Troponin I 0.012 Cancelled Cancelled
06/20/24
08:56
Troponin I < 0.012
Vital Signs and I&O:
Vital Signs
Temp Pulse Resp BP Pulse Ox
97.5 F 56 18 118/50 93
06/22/24 09:00 06/22/24 09:00 06/22/24 09:00 06/22/24 09:00 06/22/24 09:00
Vital Signs
Temp Pulse Resp BP Pulse Ox
97.5 F 56 18 118/50 93
06/22/24 09:00 06/22/24 09:00 06/22/24 09:00 06/22/24 09:00 06/22/24 09:00
Intake & Output
06/20/24 06/21/24 06/22/24 06/23/24
06:59 06:59 06:59 06:59
Intake Total 600 / 600 1120 / 1120 1180 / 1180
Balance 600 / 600 1120 / 1120 1180 / 1180
Physical Exam
Physical Exam
�
����Physical Exam
�
���������������������General:��no apparent distress, not acutely ill
�
���������������������������Neck:��supple. no meningeal signs. normal psoterior pharynx
������������������������
���������������������������Heart:��s1/s2 regular rate and rhythm, no murmur. equal radial pulses.
�
��������������������������Lungs: ��no acute respiratory distress. clear bilaterally
�
����������������������Abdomen:�normal bowel sounds. not tender. no CVAT
�
��������������������������Neuro:��alert and oriented. no focal neurological deficits
�
������������������������������Skin: ��no rash
�
�����������������������Psychiatric:�well kept. interactive and cooperative
�
�����������������������Extremities:��no edema. no calf tenderness. negative homans. good distal pulses
�
�
�
��
�
[2024-06-22 11:00] VITALS: BP 128/52
[2024-06-22] MEDS: COZAAR 50 MG PO (12:01)
--- NOTE | 2024-06-22 15:09 | CM ---
Patient seen at bedside with physician. Patient given IMM to review. Patient for home O2 assessment, pending assessment CM spoke with [employer] liaison about changing to portable concentrator if patient qualifies for home O2. CM will continue to follow
for discharge planning needs.
Plan; home with change in O2 setting will need updated script to [employer]; home with VN for supports.
[2024-06-22 15:19] VITALS: BP 141/58
--- NOTE | 2024-06-22 15:34 | W.PN.HOSP.TC ---
Today's Communication/Plan
-
assess for home O2
d/c planning
Assessment / Plan
Assessment / Plan
pt is an 84 year old female
acute on chronic hypoxemic resp failure--wears 2L O2 at nighttime--now during the day--possible HFpEF exacerbation--cannot r/o superimposed acute COPD exacerbation--doubt PNA, stopped abx--procalcitonin negative--ECHO just done 05/11/24, will not
repeat-- apprec cards/pulm consult--stopping lasix, weights down--cont nebs/wean steroids---has HX of interstitial/restrictive lung disease per PMH--would keep pulse ox > 92%, wean O2 as able--assess for home O2
essential HTN--cont amlodipine, hydralazine, IV lasix, losartan, and toprol XL
HLD--cont zetia and atorvastatin
hx of CVA in past--cont asa/plavix
IBS--bentyl PRN for spasms
GERD--PPI
DVT proph
code status -- FULL CODE
Anticipated Discharge: Within 24 hours
Subjective/Interval History
-
Date of Service: June 22, 2024
pt sitting comfortably in bed with nonlabored respirations--then c/o SOB when asked how she feels
Objective Data
-
Labs:
Laboratory Results
06/22/24
04:53
WBC 9.5
Hgb 11.5 L
Hct 34.8 L
Plt Count 324
Sodium 142
Potassium 4.5
Chloride 106
Carbon Dioxide 26
BUN 67 H
Creatinine 1.1 H
Glucose 151 H
Calcium 9.1
Vital Signs:
max temp for 24 hours
06/21/24
15:14
Temp 97.8 F
Vital Signs
Temp Pulse Resp BP Pulse Ox
97.8 F 55 20 141/58 96
06/22/24 15:19 06/22/24 15:19 06/22/24 15:19 06/22/24 15:19 06/22/24 15:19
I&O
06/21/24 06/22/24 06/23/24
06:59 06:59 06:59
Intake Total 1120 / 1120 1180 / 1180
Balance 1120 / 1120 1180 / 1180
Review of Systems
-
All other systems: Reviewed and negative
Respiratory: Reports Trouble Breathing
Physical Exam
-
General: Well Developed, Well Nourished and No Apparent Distress
HEENT: Normocephalic, Atraumatic and Oxygen
Respiratory: Decreased Breath Sounds; Negative Wheezes or Crackles
Cardiac: Regular Rhythm and S1/S2; Negative Murmur
GI: Soft, Nontender, Nondistended and Normal Bowel Sounds
Musculoskeletal: No Clubbing, No Cyanosis and No Edema
Skin: Warm
Neuro: Awake and Alert
Psych: Calm
[2024-06-22] MEDS: LIPITOR 40 MG PO (16:41)
[2024-06-22 19:30] VITALS: BP 127/50
[2024-06-22] MEDS: ZETIA 10 MG PO (20:42)
[2024-06-23 00:26] VITALS: BP 108/44
[2024-06-23 03:35] VITALS: BP 120/44
[2024-06-23 05:29] LABS: Hematocrit 36.4 % (37.0-47.0); Hemoglobin 11.7 g/dL (12.0-16.0); Mean Corp Hgb Conc. 32.1 g/dL (33.0-37.0); Mean Corpuscular Volume 90.3 fL (81.0-99.0); Mean Platelet Volume 9.9 fL (7.4-10.4); Platelet Count 327 10^3/uL (130-400); Red Blood Cell Count 4.03 10^6/uL (4.20-5.40); Red Cell Dist. Width 13.2 % (11.5-14.5); White Blood Cell Count 8.8 10^3/uL (4.8-10.8)
[2024-06-23 05:50] LABS: Blood Urea Nitrogen 68 mg/dl (7-17); Calcium 9.1 mg/dl (8.4-10.2); Carbon Dioxide 25 mmol/L (22-30); Chloride 108 mmol/L (98-107); Estimated Creatinine Clearance 39 ml/min; Glucose 194 mg/dl (70-99); Magnesium 2.9 mg/dl (1.6-2.3); Potassium 4.2 mmol/L (3.5-5.1); Sodium 142 mmol/L (135-145); eGFR > 60.00
[2024-06-23 06:00] VITALS: BMI 28.2
[2024-06-23 07:35] VITALS: BP 108/59
[2024-06-23] MEDS: PROTONIX 40 MG PO (08:17)
[2024-06-23] MEDS: PLAVIX 75 MG PO (08:17)
[2024-06-23] MEDS: ASPIR LOW (ENTERIC COATED) 81 MG PO (08:17)
[2024-06-23] MEDS: MUCINEX 600 MG PO (08:17)
[2024-06-23] MEDS: DECADRON 4 MG IV (08:18)
[2024-06-23] MEDS: APRESOLINE PO (08:18)
[2024-06-23] MEDS: TOPROL XL PO (08:19)
[2024-06-23] MEDS: NORVASC 5 MG PO (08:19)
--- NOTE | 2024-06-23 09:22 | W.PN.PUL.V3 ---
Today's Communication / Plan
-
Wean oxygen.
Increased activity.
Change Decadron to prednisone.
Outpatient pulmonary follow-up
Assessment
-
84-year-old female who is underlying COPD followed by Dr Hong on chronic oxygen at nighttime but no inhalers who also has hypertension, hyperlipidemia, presented with increasing shortness of breath felt to be pneumonia, COPD exacerbation and
possible heart failure-pulmonary consulted for shortness of breath/COPD 06/22/2024.
Shortness of breath.
Bronchitis versus early pneumonia
COPD with mild acute exacerbation.
CHF-acute on top of chronic preserved EF.
Leukocytosis-WBC 11.7.
Frzqnd-zfvxxxdtkb-qfzkobhenz 11.5.
CLAUDIA
Hyperglycemia
Conditions present prior to admission:
CAD.
COPD on 2 L oxygen at night, no inhalers.
ILD.
DANIELA.
GERD.
Hyperlipidemia.
TIA.
Hypertension.
PAD.
Thyroid nodules.
Osteopenia.
Spinal stenosis.
Venous insufficiency.
History CVA.
Prediabetes.
Breast cancer/lumpectomy/XRT.
Migraines.
Cervical cancer.
Hysterectomy. Tonsillectomy. Right carotid endarterectomy 2017. Skin most surgery 2020. RUE pseudoaneurysm repair. Cholecystectomy.
Plan
Respiratory decompensation, likely a combination of infection, COPD, as well as CHF.
Supplemental oxygen as needed.
Nebulizers as needed.
Aspiration precautions.
Mucus clearing devices..
Mucolytic's
Change Decadron to Prednisone 40 mg with fairly rapid taper
Continue diuresis as tolerated.
Monitor intake/output, renal function, lower extremity edema.
Replace electrolytes as needed.
Cardiology consultation noted-correspondence reviewed-
Cultures reviewed.
Influenza negative.
MRSA screen negative.
Recent blood cultures negative
Observe off antibiotics.
Low threshold for antibiotic initiation
Follow leukocytosis
Monitor hemoglobin.
Transfuse if needed.
DVT prophylaxis
Nutrition
Early mobilization
Patient last saw Dr. Hong on 10/20/2023-will recommend appointment after this discharge
Diagnostic data:
Chest x-ray 06/22/23-moderate to severe changes of emphysema, small bilateral pleural effusions.
CT chest 06/22/23-minimal right pleural effusion, emphysematous changes,
Chest x-ray 06/19/24-CHF with possible right upper lobe pneumonia
CT chest 06/22/23: negative PE. Small right pleural effusion. Evidence of emphysema with bullae bilaterally. Lower lobe opacities, slightly increased compared to September 2022, suspected atelectasis per my review. 1.7 cm thyroid nodule
������CT chest 10/03/22: negative PE. mild emphysema and interstitial changes. interstitial changes slightly worse compared to 2020
�������CXR 05/19/21:small left pleural effusion with chronic lung changes, no acute findings
�������CT chest 11/01/20: mild apical emphysema, subpleural interstitial disease, right apical pleural thickening. Slightly worse compared to 2016 per report. No significant adenopathy
�������CXR 05/19/19: moderate interstitial disease, slowly progressive compared to 2015 and 2017, decreased lung volumes
�������CXR 10/09/17: no acute findings. She has cardiomegaly and mild interstitial changes bilaterally.
�������CT chest 10/31/15: reveals mild bilateral patchy ground glass changes with mild pleural thickening and emphysema.
�������Doppler ultrasound 08/15/16: no evidence of left lower extremity DVT CXR 05/19/21:small left pleural effusion with chronic lung changes, no acute findings
�������CT chest 11/01/20: mild apical emphysema, subpleural interstitial disease, right apical pleural thickening. Slightly worse compared to 2016 per report. No significant adenopathy
�������CXR 05/19/19: moderate interstitial disease, slowly progressive compared to 2015 and 2017, decreased lung volumes
�������CXR 10/09/17: no acute findings. She has cardiomegaly and mild interstitial changes bilaterally.
�������CT chest 10/31/15: reveals mild bilateral patchy ground glass changes with mild pleural thickening and emphysema.
�������Doppler ultrasound 08/15/16: no evidence of left lower extremity DVT.
Echo 06/15/23: Mild to moderate mitral regurgitation, normal biventricular function, PA pressure 43, moderate aortic regurgitationyour pressure is decreased from 64 when compared to 05/30/23 Echo 05/08/20: normal biventricular function. Mild aortic
insufficiency, PASp 31
�������Echo 06/22/17: reveals normal biventricular function, moderate mitral regurgitation, and aortic regurgitation, PA pressure 31
Echocardiogram 05/11/24-EF 60-65%, stage II diastolic dysfunction, mild aortic stenosis
PFT 07/02/23: FVC 1.46/76%, FEV1 1.22/87%, ratio 84. TLC 2.40/56%, DLCO 4.66/28%. Moderate restriction with severe gas exchange defect. This is stable
�������PFT 11/10/22: FVC 1.37/70%, FEV1 1.14/80%, ratio 83. TLC 2.41/56%, DLCO 4.56/27%. Moderate restriction with severe gas exchange defect. Compared to 2021, stable. This has worsened compared 2019
�������PFT 10/18/21: FVC 1.55/77%, FEV1 1.26/86%, ratio 81. TLC 2.64/62%, DLCO 6.3/37%.. When compared to 2019, DLCO is decreased from 8.27-6.30.
�������[facility] 06/17/21: FVC 1.45/71%, FEV1 1.22/81%, ratio 84. There is mild reactive airways disease.
�������[facility] 11/05/20: FVC 1.57/75%, FEV1 1.22/79%, ratio 83
�������[place] 05/08/20: FVC 1.54/72%, FEV1 1.35/86%, ratio 88 When compared to prior PFT, FVC has decreased from 1.70-1.54 in the last year, likely insignificant.
�������PFT 05/05/19: FVC 1.70/81%, FEV1 1.40/92%,Ratio 84, TLC 2.73/64%, DLCO 8.27/48%. When compared to prior study, FEV1 has slightly decreased.
�������PFT 06/02/17: FVC 1.83/83%, FEV1 1.55/95% ratio 85, TLC 3.45/81%, and DLCO 7.73/44% predicted. When compared to prior pulmonary function test, lung capacity has improved, diffusion capacity decreased.
Subjective Data
-
Date of Service:
Date of Service: June 23, 2024
Chief Complaint: Pulmonary Follow Up and Dyspnea Follow Up
Subjective:
Anxious for discharge, feels about the same, has oxygen at home, chest pain, productive cough, or abdominal pain
Review of Systems
General: Other (per HPI)
Objective Data
Data Reviewed
Vital Signs / I&O:
Vital Signs
Temp Pulse Resp BP Pulse Ox
98.2 F 53 19 108/59 97
06/23/24 07:35 06/23/24 08:19 06/23/24 07:35 06/23/24 08:19 06/23/24 07:35
Intake and Output
06/22/24 06/23/24 06/24/24
06:59 06:59 06:59
Intake Total 1180 / 1180 1200 / 1200
Balance 1180 / 1180 1200 / 1200
SaO2: 97
Nasal Cannula flow liters per minute: 3
Physical Exam
General: Respiratory Distress (n) and Comfortable
HEENT: Normocephalic and Moist Mucous Membranes
Cardiovascular: Regular Rhythm
Respiratory: Wheeze (n), Crackles ( few basilar), Rhonchi (n), Non-Labored Respirations, Accessory Resp Muscle Use (n) and Stridor (n)
GI: Soft, Non Distended and Non Tender
Neurology: Awake, Alert and No Motor Deficits
Skin: Warm, Good Color, Cyanosis (n) and Jaundice (n)
Labs/Micro/Reports
Lab Data
06/23/24 04:53
06/23/24 04:53
[2024-06-23 11:33] VITALS: O2SAT 96
[2024-06-23 11:46] VITALS: BP 135/59
[2024-06-23] MEDS: COZAAR 50 MG PO (12:47)
--- NOTE | 2024-06-23 13:39 | W.PN.HOSP.TC ---
Today's Communication/Plan
-
d/c
Assessment / Plan
Assessment / Plan
pt is an 84 year old female
acute on chronic hypoxemic resp failure--wears 2L O2 at nighttime--does not qualify for home O2, lowest 91%--possible HFpEF exacerbation--cannot r/o superimposed acute COPD exacerbation--doubt PNA, stopped abx--procalcitonin negative--ECHO just done
05/11/24, will not repeat-- apprec cards/pulm consult--stopping lasix, weights down--cont nebs/wean steroids---has HX of interstitial/restrictive lung disease per PMH--would keep pulse ox > 92%, wean O2 as able--assess for home O2
essential HTN--cont amlodipine, hydralazine, IV lasix, losartan, and toprol XL
HLD--cont zetia and atorvastatin
hx of CVA in past--cont asa/plavix
IBS--bentyl PRN for spasms
GERD--PPI
DVT proph
code status -- FULL CODE
ok for d/c
Anticipated Discharge: Today
Subjective/Interval History
-
Date of Service: June 23, 2024
pt ready for d/c
Objective Data
-
Labs:
Laboratory Results
06/23/24
04:53
WBC 8.8
Hgb 11.7 L
Hct 36.4 L
Plt Count 327
Sodium 142
Potassium 4.2
Chloride 108 H
Carbon Dioxide 25
BUN 68 H
Creatinine 0.9
Glucose 194 H
Calcium 9.1
Vital Signs:
max temp for 24 hours
06/23/24
07:35
Temp 98.2 F
Vital Signs
Temp Pulse Resp BP Pulse Ox
97.7 F 52 20 135/59 97
06/23/24 11:46 06/23/24 12:47 06/23/24 11:46 06/23/24 12:47 06/23/24 11:46
I&O
06/22/24 06/23/24 06/24/24
06:59 06:59 06:59
Intake Total 1180 / 1180 1200 / 1200
Balance 1180 / 1180 1200 / 1200
Review of Systems
-
All other systems: Reviewed and negative
Physical Exam
-
General: Well Developed, Well Nourished and No Apparent Distress
HEENT: Normocephalic, Atraumatic and Oxygen
Respiratory: Clear to Auscultation; Negative Wheezes or Rhonchi
Cardiac: Regular Rhythm, S1/S2 and Murmur
GI: Soft, Nontender, Nondistended and Normal Bowel Sounds
Musculoskeletal: No Clubbing, No Cyanosis and No Edema
--- NOTE | 2024-06-23 14:01 | CM ---
Patient seen at bedside with physician. Patient plan is home with [employer] overnight home O2 as prior. Patient aware and has a ride home. IMM reviewed and signed form placed on chart. CM will continue to follow for discharge planning needs.
Plan; home with no needs
[2024-06-23 15:23] VITALS: BP 123/57
--- NOTE | 2024-06-23 15:36 | VATNOTE ---
R midline D/C'd with no issues. TCL retrieved was 16cm. Pressure dressing applied.
--- NOTE | 2024-06-23 16:18 | W.DCSUMMARY ---
Discharge Summary
Discharge Data
Date of Admission: 06/19/24
Date of Discharge: 06/23/24
Total time spent discharging patient (in min): 31
-
Pending Results: No
Hospital Course
Primary care physician : Teresita Martinez
Principal Discharge diagnosis : Acute on chronic hypoxemic respiratory failure
Chronic Discharge diagnosis : Essential hypertension, hyperlipidemia, history of stroke in past, irritable bowel syndrome, gastroesophageal reflux disease
Hospital Course : Patient was an 84-year-old female with a history of oxygen dependent chronic obstructive pulmonary disease wearing 2 L at nighttime only who presented with difficulty breathing. Patient stated that her symptoms started 4 days
prior to admission. She reported a productive cough but denied fever. She also noticed some blood-tinged sputum. She was oxygenating at 80% while on 2 L. She denied any chest pain, any known sick contacts, patient was admitted.
Problem #1: Acute on chronic hypoxemic respiratory failure. Patient was seen in consultation by both pulmonary and cardiology. Patient wears 2 L of oxygen at nighttime. Initial thoughts were possibly due to a diastolic congestive heart failure
exacerbation however cardiology felt that the patient was euvolemic or slightly dry so Lasix has been stopped. Patient's weights are down since admission. Echocardiogram was done May 11, 2024 and was not repeated during this stay. In
addition, patient was started on broad-spectrum antibiotics but pneumonia was doubtful. Procalcitonin was negative. Patient had a normal white count and no fevers. Antibiotics were stopped. This leaves COPD exacerbation. Pulmonary was
consulted. Patient was utilizing 2 L of oxygen during the day as well as at night. Decadron was given IV as well as nebulizers and mucolytic's. She was transitioned from IV Decadron to prednisone with a prednisone taper. She was assessed for
home oxygen and did not qualify with her pulse ox being 91% at the lowest. Patient feels much improved and is stable for discharge.
Problem #2: All other medical issues. These include Essential hypertension, hyperlipidemia, history of stroke in past, irritable bowel syndrome, gastroesophageal reflux disease. These medical issues were stable during her hospitalization.
Medications were continued as able.
Patient is stable for discharge home at this time. If there are any questions regarding this dictation or her hospital stay, please do not hesitate to call. Our office number is [phone].
Time for discharge 31 minutes.
Important imaging findings :
CHEST X-RAY IMPRESSION:
Diminished degree of inspiration. Congestive heart failure with asymmetric right upper lobe edema versus superimposed right upper lobe pneumonia.
Discharge Plan
-
Patient Disposition: Home (Routine Discharge)
Discharge Diagnosis/Procedures: Acute on chronic hypoxemic respiratory failure likely due to acute chronic obstructive pulmonary disease exacerbation with possibility of superimposed acute heart failure with preserved ejection fraction exacerbation,
essential hypertension, hyperlipidemia, history of stroke in past, irritable bowel syndrome, gastroesophageal reflux disease
Condition: Good
Diet: 2 Gram Sodium
Activity: As tolerated
Driving Restrictions: As prior to admission
Bathing Restrictions: None
Referrals:
Oumou Hong MD [Active] - in two to three weeks
Opal Landin CRNP [Specified Professional Personl] - 08/01/24 10:20 am (You have appointment at the [place] office with Dr. Richards's nurse practitioner, Opal. Please call with questions)
Teresita Martinez MD [Family Provider] - in less than 1 week
Prescriptions:
New
guaifenesin 600 mg Tablet Extended Release 12hr
600 mg PO Q12 Qty: 20 0RF
prednisone 10 mg Tablet
See Rx Instructions .ROUTE .COMPLEX Qty: 30 0RF
Rx Instructions:
Take By Mouth:
40 mg daily x3 days, 30 mg daily x3 days,
20 mg daily x3 days, 10 mg daily x3 days.
Continued
atorvastatin 40 MG tablet
40 mg PO QPM
ezetimibe 10 MG tablet
10 mg PO HS
furosemide [Lasix] 20 mg Tablet
20 mg PO DAILY
losartan 50 mg Tablet
50 mg PO DAILY@1100
hydralazine 25 mg Tablet
25 mg PO TID
amlodipine 5 mg Tablet
5 mg PO BID
metoprolol succinate [Toprol XL] 25 mg Tablet Extended Release 24 Hr
25 mg PO BID
dicyclomine 20 mg Tablet
20 mg PO DAILYPRN PRN (Reason: intestinal spasms)
clopidogrel 75 MG tablet
75 mg PO DAILY Qty: 90 1RF
aspirin 81 mg Tablet,Delayed Release (Dr/Ec)
81 mg PO DAILY Qty: 0 0RF
pantoprazole 40 mg Tablet,Delayed Release (Dr/Ec)
40 mg PO DAILY Qty: 0 0RF
Discharge Orders:
Discharge Patient (As Directed); Ordered 06/23/24
Ordered By: Alyce Yeh
Discharge Date and Time
Print Language: ITALIAN
== END 2024-06-23 16:37 | disposition home or self-care (01) | DRG 291 ==
LOC: 4 WEST ACU 13:46
PROVIDERS: Nurse Practitioner Family; ADMITTING PHYSICIAN Internal Medicine; ATTENDING PHYSICIAN Internal Medicine; CONSULT PHYSICIAN Internal Medicine Critical Care Medicine; EMERGENCY PHYSICIAN Student in an Organized Health Care Education/Training Program; FAMILY PHYSICIAN Family Medicine; OTHER PHYSICIAN Internal Medicine Cardiovascular Disease
DX: I11.0 Hypertensive heart disease with heart failure (principal); I50.33 Acute on chronic diastolic (congestive) heart failure; J96.21 Acute and chronic respiratory failure with hypoxia; J84.9 Interstitial pulmonary disease, unspecified; N17.9 Acute kidney failure, unspecified; J43.2 Centrilobular emphysema; E78.00 Pure hypercholesterolemia, unspecified; I25.10 Atherosclerotic heart disease of native coronary artery without angina pectoris; K21.9 Gastro-esophageal reflux disease without esophagitis; M85.89 Other specified disorders of bone density and structure, multiple sites; M48.062 Spinal stenosis, lumbar region with neurogenic claudication; E04.2 Nontoxic multinodular goiter; I73.9 Peripheral vascular disease, unspecified; I87.2 Venous insufficiency (chronic) (peripheral); R73.03 Prediabetes; J98.4 Other disorders of lung; G43.909 Migraine, unspecified, not intractable, without status migrainosus; D64.9 Anemia, unspecified; I35.2 Nonrheumatic aortic (valve) stenosis with insufficiency; R73.9 Hyperglycemia, unspecified; G47.33 Obstructive sleep apnea (adult) (pediatric); I65.23 Occlusion and stenosis of bilateral carotid arteries; Z60.2 Problems related to living alone; Z87.891 Personal history of nicotine dependence; Z99.81 Dependence on supplemental oxygen; Z90.49 Acquired absence of other specified parts of digestive tract; Z86.73 Personal history of transient ischemic attack (TIA), and cerebral infarction without residual deficits; Z88.5 Allergy status to narcotic agent; Z88.8 Allergy status to other drugs, medicaments and biological substances; Z79.02 Long term (current) use of antithrombotics/antiplatelets; Z79.82 Long term (current) use of aspirin; Z85.3 Personal history of malignant neoplasm of breast; Z82.49 Family history of ischemic heart disease and other diseases of the circulatory system; Z82.3 Family history of stroke; Z92.3 Personal history of irradiation; Z85.41 Personal history of malignant neoplasm of cervix uteri; Z11.52 Encounter for screening for COVID-19
CPT/HCPCS: 71046; 80048; 80053; 83735; 83880; 84145; 84484; 85025; 85027; 85610; 87502; 87811; 93005; 96365; 96375; 97162; 97166; 97530; 99285

== ENCOUNTER → 2024-08-05 14:18 | Outpatient (REF) | payer MEDICARE, OTHER, SELFPAY | LOC: RAD 14:18 | PROVIDERS: ATTENDING PHYSICIAN Internal Medicine Critical Care Medicine; FAMILY PHYSICIAN Family Medicine | DX: J84.9 Interstitial pulmonary disease, unspecified (principal) | CPT/HCPCS: 71046 ==

== ENCOUNTER → 2024-09-12 10:39 | Outpatient (REF) | payer MEDICARE, OTHER, SELFPAY ==
[2024-09-12 12:06] LABS: ALT (SGPT) 16 U/L (0-35); AST (SGOT) 25 U/L (14-36); Alkaline Phosphatase 106 U/L (38-126); Blood Urea Nitrogen 20 mg/dl (7-17); Carbon Dioxide 25 mmol/L (22-30); Chloride 103 mmol/L (98-107); Glucose 104 mg/dl (70-99); HDL Cholesterol 39 mg/dl; LDL Cholesterol, Calculated 55 mg/dl; Potassium 4.5 mmol/L (3.5-5.1); Sodium 137 mmol/L (135-145); Total Cholesterol 125 mg/dl (50-199); Total Protein 6.5 g/dl (6.3-8.2); Triglyceride 156 mg/dl (10-149); Very Low Density Lipoprotein 31 mg/dl (0-30); eGFR > 60.00
== END ==
LOC: RAD 10:39
PROVIDERS: ATTENDING PHYSICIAN Family Medicine
DX: E04.2 Nontoxic multinodular goiter (principal); R73.03 Prediabetes; E78.5 Hyperlipidemia, unspecified; I10 Essential (primary) hypertension
CPT/HCPCS: 36415; 76536; 80053; 80061

== ENCOUNTER → 2024-09-22 11:27 | Outpatient (REF) | payer MEDICARE, OTHER, SELFPAY ==
[2024-09-22 15:45] LABS: NT-proBNP 621 pg/ml
== END ==
LOC: HWLAB 11:27
PROVIDERS: ATTENDING PHYSICIAN Nurse Practitioner Adult Health; FAMILY PHYSICIAN Family Medicine; REFERRING PHYSICIAN Internal Medicine Critical Care Medicine
DX: J84.9 Interstitial pulmonary disease, unspecified (principal); R94.2 Abnormal results of pulmonary function studies
CPT/HCPCS: 36415; 71250; 83880

== ENCOUNTER 2024-10-21 19:21 | Inpatient (IN) | payer MEDICARE, OTHER, SELFPAY ==
[2024-10-21] VITALS (15 sets, daily range): BP systolic 104–161; BP diastolic 48–104; BMI 29.4
[2024-10-21 15:41] LABS: % Basophils 0.4 % (0-2); % Eosinophils 0.8 % (0-6); % Immature Granulocytes 0.5 % (0-0.5); % Lymphocytes 11.1 % (20.5-51.1); % Monocytes 8.4 % (1.7-9.3); % Neutrophils 78.8 % (42.2-75.2); Absolute Basophils 0.1 10^3/uL (0-0.2); Absolute Eosinophils 0.1 10^3/uL (0-0.7); Absolute Immature Granulocytes 0.1 10^3/uL (0-0.05); Absolute Lymphocytes 1.4 10^3/uL (1.2-3.4); Absolute Monocytes 1.1 10^3/uL (0.1-0.6); Absolute Neutrophils 9.8 10^3/uL (1.4-6.5); Hematocrit 35.5 % (37.0-47.0); Hemoglobin 11.7 g/dL (12.0-16.0); Mean Corpuscular Hgb 28.7 pg (27.0-31.0); Mean Platelet Volume 9.5 fL (7.4-10.4); Nucleated Red Blood Cells % 0 %; Platelet Count 294 10^3/uL (130-400); Red Blood Cell Count 4.08 10^6/uL (4.20-5.40); Red Cell Dist. Width 14.3 % (11.5-14.5); White Blood Cell Count 12.5 10^3/uL (4.8-10.8)
--- NOTE | 2024-10-21 15:50 | ED.GENMED ---
History of Present Illness
General
Chief Complaint: Breathing Problem
Source: patient
Exam Limitations: none
Time Seen by Provider: 10/21/24 15:30
Nursing documentation reviewed up to this point in time: agreed with
History of Present Illness
History of Present Illness:
Patient with history of oxygen dependent COPD (2 L via nasal cannula), chronic cough, and congestive heart failure on Lasix, presents to ED secondary to worsening shortness of breath with exertion over the past 3 days. Denies chest pain. Denies
chest palpitations. Denies nausea or vomiting. Denies diarrhea. Denies leg pain. Denies increased weight gain. Denies back pain. Denies recent change in medications or diet. Denies worsening cough. Patient states that she was admitted to the [facility] in June for similar complaint, when she was treated for pneumonia. Denies recent travel or surgery. Per paramedics, patient's pulse ox was noted to be in mid 80s when first arrived.
Past History
Past History
ED Past Medical History: CAD, Cancer, COPD, GERD, HTN, Hypercholesterolemia, Other (Peripheral vascular disease, TIA) and Other
ED Past Surgical History: Cholecystectomy, Gynecological (hysterectomy), Tonsilectomy, Urological and Other (right carotid endarterectomy in 2018, iliac stent placement twice in 2020)
Social History
Tobacco: Former smoker (distant cigarette use ending in 1986)
Alcohol: None
Drug: None
Personal: Other
Living: with family
Employment: Retired
Family History
Family History: Other (reviewed and Noncontributory)
Review of Systems
Review of Systems
Allergies reviewed?: Yes
All Other Systems: ROS reviewed and negative except as documented in HPI and ROS
Constitutional: Reports no symptoms; Denies fever
EENT: Reports no symptoms
Respiratory: Reports cough and trouble breathing
Cardiac: Reports no symptoms; Denies chest pain, diaphoresis or palpitations
ABD/GI: Reports no symptoms; Denies nausea or vomiting
: Reports no symptoms
Musculoskeletal: Reports no symptoms
Skin: Reports no symptoms
Neurological: Reports no symptoms
Phy Exam
Physical Exam
Physical Exam:
Physical Exam
General: mild respiratory distress, not acutely ill. afebrile.
Head: nc/at. eomi
Neck: supple. normal range of motion.
Heart: s1/s2 regular rate and rhythm
Lungs: mild respiratory distress. diminished breath sounds bilaterally
Abdomen: normal bowel sounds. not tender.
Neuro: alert and oriented x 3. no focal neurological deficits
Skin: no rash
Psychiatric: well kept. interactive and cooperative
Extremities: no edema. no calf tenderness.
Scores
Heart Failure Risk
Heart Failure Risk Score: Not Applicable
Course
Orders/Labs/Results
Orders:
Orders
10/21/24 15:32
Electrocardiogram (*1) Urgent
Reason for Study: Chest Pain
Electrocardiogram (*1) Urgent
Reason for Study: Shortness of Breath
10/21/24 15:33
EKG- Treatment ONCE
10/21/24 15:36
Complete Blood Count/With Diff Urgent
Comprehensive Metabolic Panel Urgent
NT-proBNP Urgent
Troponin I Urgent
10/21/24 15:50
CR Chest - 2 Views Urgent
Comment:
Reason For Exam: sob
10/21/24 15:54
COVID-19 Antigen Urgent
Source: Nasal Swab
10/21/24 17:20
Azithromycin 500 mg/250 ml [Zithromax Infusion] 500 mg in 250 ml IV NOW
CefTRIAXone [Rocephin] 1,000 mg IV NOW STA
Dexamethasone Sod Phosphate [Decadron] 6 mg IV NOW STA
10/21/24 17:50
Sterile Water [Sterile Water For Injection] 10 ml .ROUTE .[facility]
10/21/24 19:03
Admit/Transfer Patient As Directed
Co-Sign Provider:
Level of Care: Inpatient admission
Assign to:: Medical/Surgical
Physician / Group: kevin
Diagnosis: pneumonia
Reason for Hospitalization: pneumonia
Expected length of stay greater than two midnights?: Yes
ELOS- Estimated Length of Stay in days: 3
I certify the patient meets the requirements for IP care: Yes
10/21/24 19:04
PRN Pain Medication Management As Directed
May give lesser potent ordered pain med per pt: Yes
preference::
Protocol:: Medication orders for pain may be administered in a
manner that supports deferring to patient preference
when the pt is:
- Requesting an ordered lesser potent pain medication.
Least to most potent pain medications are defined
as: acetaminophen < NSAID < tramadol < opioids
(morphine, oxycodone, hydromorphone).
- Requesting a lesser dose of the same medication IF
ORDERED.
- Requesting a less intrusive route of administration
if both routes are prescribed by the provider (PO <
IV).
10/21/24 19:10
Code Status As Directed
Resuscitation Status: Full Code
Abnormal Lab Results
10/21/24
15:36
WBC 12.5 H 10^3/uL
(4.8-10.8)
RBC 4.08 L 10^6/uL
(4.20-5.40)
Hgb 11.7 L g/dL
(12.0-16.0)
Hct 35.5 L %
(37.0-47.0)
Abs Immat Gran (auto) 0.1 H 10^3/uL
(0-0.05)
Absolute Neuts (auto) 9.8 H 10^3/uL
(1.4-6.5)
Absolute Monos (auto) 1.1 H 10^3/uL
(0.1-0.6)
Neutrophils % 78.8 H %
(42.2-75.2)
Lymphocytes % 11.1 L %
(20.5-51.1)
BUN 21 H mg/dl
(7-17)
10/21/24 15:36
10/21/24 15:36
Vital Signs
Initial and Last Documented VS:
Initial Vital Signs
BP Pulse Ox
161/63 90
10/21/24 15:31 10/21/24 15:31
Last Documented Vital Signs
Temp Pulse Resp BP Pulse Ox
98.8 F 80 25 121/57 94
10/21/24 15:41 10/21/24 22:45 10/21/24 22:45 10/21/24 22:30 10/21/24 22:45
MDM/Problems Addressed
MDM/Problems Addressed:
History, exam, and chest x-ray consistent with pneumonitis versus pneumonia. As such, especially in light of patient's hypoxia, requiring increased oxygen requirement, patient will be admitted for further evaluation and treatment, including IV
antibiotics and IV steroids.
*Critical Care Note
Total Time (30-74mins, 75-104mins- exclusive of procedures): Not Applicable
ED Attending Note
-
Portions of this chart may have been created with voice recognition software.� Occasional wrong word or��sound alike� substitutions may have occurred due to the inherent limitations of voice recognition software.
Discharge Plan
Departure
Patient Disposition: Admit
Date of Disposition: 10/21/24
Time of Disposition: 17:24
Admit to: Telemetry
Presentation/result/management discussed w/ accepting MD/DO: Hospitalist
Discharge Problem:
Hypoxia, Pneumonia
Interventions
Interventions:
*Risk Screen - Suicide Last Done: 10/21/24 15:41
*General Assessment Last Done: 10/21/24 15:41
*Neglect/Abuse Screening Last Done: 10/21/24 15:41
*ED COVID-19 Vaccine History Last Done: 10/21/24 15:51
ED- Cardiac Assessment Last Done: 10/21/24 15:41
ED- Pulmonary Assessment Last Done: 10/21/24 15:48
[2024-10-21 16:06] LABS: NT-proBNP 1100 pg/ml; Troponin I < 0.012 ng/ml
[2024-10-21 16:11] LABS: ALT (SGPT) 15 U/L (0-35); AST (SGOT) 33 U/L (14-36); Albumin 4.2 g/dl (3.5-5.0); Alkaline Phosphatase 104 U/L (38-126); Blood Urea Nitrogen 21 mg/dl (7-17); Carbon Dioxide 25 mmol/L (22-30); Chloride 102 mmol/L (98-107); Estimated Creatinine Clearance 51 ml/min; Glucose 97 mg/dl (70-99); Potassium 4.8 mmol/L (3.5-5.1); Sodium 137 mmol/L (135-145); Total Bilirubin 1.2 mg/dl (0.2-1.3); Total Protein 7.1 g/dl (6.3-8.2); eGFR > 60.00
[2024-10-21 16:43] LABS: COVID-19 Antigen Negative (Negative)
[2024-10-21] MEDS: DECADRON 6 MG IV (17:55)
[2024-10-21] MEDS: ROCEPHIN 1000 MG IV (17:56)
[2024-10-21] MEDS: ZITHROMAX INFUSION 250 IV (18:06)
--- NOTE | 2024-10-21 18:45 | HPS.HSE ---
Addendum entered and electronically signed by Nellie Tirado DO 10/21/24 20:15:
Patient has been seen and examined. Reviewed the patient with Antonieta and I have reviewed her history and physical and agree with her history and physical and assessment and plan of care as per below. The patient is an 84-year-old woman with past
medical history significant for COPD on home oxygen at 2 L via nasal cannula, CHF, CVA, essential hypertension who presented to the emergency department secondary to worsening exertional dyspnea over the past several days. Her oxygen was in the
70s at home. In the emergency department during this history and physical the patient's oxygen saturation dropped to 85% on 4 L. It was subsequently persistently low at 88% on 4 l. Her oxygen requirements increased to 6 L per nasal cannula and
her oxygen was 93% on this.
Physical examination
She has bibasilar crackles and rales in the mid lung back, she has decreased air movement bilaterally
Cardiovascular regular rate and rhythm without appreciable murmurs
Neurological exam is grossly intact no focal deficits
Abdomen is soft nontender normoactive bowel sounds
WC 12.5
Chest x-ray shows severe interstitial and airspace opacities throughout the lungs right worse than left and progressed from prior.
Impression and plan of care
# Acute on chronic hypoxic respiratory failure secondary to healthcare associated pneumonia due to recent hospitalization less than 3 months ago
-chronic o2 dependant at home, (2l) , currently requiring 6 L of oxygen per nasal cannula to maintain her oxygen saturation above 90%
- WBC 12.0
- COVID-negative
- Chest x-ray with impression of severe right lung pneumonitis/pneumonia
- Azithromycin and ceftriaxone in ER
-vanco and Zosyn continued
- Tylenol as needed for fever
- Will consult pulmonary
#COPD Exacerbation
-nebs, steroids, RT, oxygen therapy and wean per protocol, 2 L is her baseline
# Anemia of chronic disease
- Hemoglobin stable at 11.7
- No active bleeding
Plan continue to monitor
#essential HTN--cont amlodipine, hydralazine, IV lasix, losartan, and toprol XL
#HLD--cont zetia and atorvastatin
#hx of CVA in past--cont asa/plavix
#IBS--bentyl PRN for spasms
#GERD--PPI
#DVT proph
- SCDs
#code status -- FULL CODE
Original Note:
Family Physician
-
Family Physician: Teresita Martinez
Chief Complaint
-
sob
History of Present Illness
84 year old with PMH for COPD,HTN, CHF, HLD,CVA Patient with history of oxygen dependent COPD (2 L via nasal cannula), chronic cough, presents to ED secondary to worsening shortness of breath with exertion over the past 3 days. her oxygen dipped
down to 70s at home. she has chronic cough. denied fever, chills, CABRALES, dizzy or syncope. Denies chest pain. Denies chest palpitations. Denies nausea or vomiting. Denies diarrhea.Denies increased weight gain. denied dysuria or hematuria.
Upon arrival patient was noted hypoxic requiring 4 L of oxygen, patient received azithromycin, ceftriaxone, Decadron in ER for pneumonia, admitted for further management
Medical History
Past Medical History
Past Medical History: Reports Other
Additional Past Medical History:
Dyslipidemia
CVA
Hypertension
Aortic valve stenosis
Spinal stenosis
Osteopenia
Thyroid nodules
Peripheral artery disease
Carotid artery stenosis
Venous insufficiency
Prediabetes
Interstitial lung disease
Obstructive sleep apnea
GERD
Squamous cell carcinoma
Cervical cancer
UTI
Upper extremities aneurysm of artery
SVT
Past Surgical History: Reports Other
Additional Past Surgical History:
Left lumpectomy
Hysterectomy
Tonsillectomy
Right carotid endarterectomy
Skin Mohs surgery
Right upper extremity pseudoaneurysm repair and evacuation of hematoma
Cholecystectomy
Social History
Tobacco: Former Smoker
Alcohol: Daily
Drug: None
Personal: Single
Living: Alone
Family History
Family History: Not pertinent
Allergies / Home Medications
Allergies reflects when Allergies were last updated in [employer].
Home Medications with original date entered in [employer]
Allergy/Medication List:
Allergies
Allergy/AdvReac Type Severity Reaction Status Date / Time
hydrocodone [From Vicodin] Allergy Unknown Verified 10/21/24 15:48
labetalol Allergy Unknown Verified 10/21/24 15:48
Home Medications
atorvastatin 40 mg tablet 40 mg PO QPM High cholesterol 11/30/20
ezetimibe 10 mg tablet 10 mg PO DAILY High cholesterol 11/30/20
furosemide 20 mg tablet (Lasix) 20 mg PO DAILY Fluid Retention/Swelling 06/15/23
hydralazine 25 mg tablet 25 mg PO TID Blood Pressure 06/15/23
losartan 50 mg tablet 50 mg PO DAILY Blood Pressure 06/15/23
metoprolol succinate 25 mg tablet,extended release 24 hr (Toprol XL) 25 mg PO QPM Blood Pressure 06/15/23
dicyclomine 20 mg tablet 20 mg PO DAILYPRN PRN intestinal spasms 06/19/24
aspirin 81 mg tablet,delayed release 81 mg PO DAILY Blood clot prevention/tx #0 tabs 06/23/24
clopidogrel 75 mg tablet 75 mg PO DAILY Blood clot prevention/tx #90 tabs 06/23/24
acetaminophen 650 mg tablet,extended release (Tylenol 8 Hour) 650 mg PO [id number] PRN mild pain 10/21/24
amlodipine 10 mg tablet 10 mg PO QPM 10/21/24
peg 400-propylene glycol (PF) 0.4 %-0.3 % eye drops in a dropperette (Systane (PF)) 1 drp BOTH EYES [id number] PRN dry eyes 10/21/24
Review of Systems
-
Constitutional: Reports No Symptoms
EENT: Reports No Symptoms
Respiratory: Reports Trouble Breathing
Cardiac: Reports No Symptoms
Abdomen/GI: Reports No Symptoms
: Reports No Symptoms
Musculoskeletal: Reports No Symptoms
Skin: Reports No Symptoms
Neurological: Reports No Symptoms
Endocrine: Reports No Symptoms
Hematologic/Lymphatic: Reports No Symptoms
Psych: Reports No Symptoms
Physical Exam
Vital Signs
Vital Signs
Temp Pulse Resp BP Pulse Ox
98.8 F 90 26 153/65 94
10/21/24 15:41 10/21/24 17:45 10/21/24 17:45 10/21/24 17:30 10/21/24 17:45
Physical Exam
General: Well Developed, Well Nourished and No Apparent Distress
HEENT: NormoCephalic, Moist mucous membranes and Atraumatic
Respiratory: Rales and Rhonchi
Cardiac: S1/S2 and Regular Rhythm; No Murmur or Rub
GI: Soft, Non Tender, Non Distended and Normal Bowel Sounds; No Organomegaly
Rectal: Deferred by Provider
Musculoskeletal: No Clubbing, No Cyanosis and No Edema
Skin: No Rash
Neuro: AO x 3 and Nonfocal/grossly intact
Laboratory Results
-
10/21/24 15:36
10/21/24 15:36
Laboratory Results
Total Bilirubin 1.2 mg/dl (0.2-1.3) 10/21/24 15:36
AST 33 U/L (14-36) 10/21/24 15:36
ALT 15 U/L (0-35) 10/21/24 15:36
Alkaline Phosphatase 104 U/L (38-126) 10/21/24 15:36
Troponin I < 0.012 ng/ml 10/21/24 15:36
Data Reviewed
-
Diagnostic Radiology: Report Reviewed by me
Lab Data: Labs Reviewed by me
Impression/Plan
-
# Acute on chronic hypoxic respiratory failure secondary to healthcare associated pneumonia
-chronic o2 dependant at home, (2l)
- WBC 12.0
- COVID-negative
- Chest x-ray with impression of severe right lung pneumonitis/pneumonia
- Azithromycin and ceftriaxone in ER
-vanco and Zosyn continued
- Tylenol as needed for fever
# Anemia of chronic disease
- Hemoglobin stable at 11.7
- No active bleeding
Plan continue to monitor
#essential HTN--cont amlodipine, hydralazine, IV lasix, losartan, and toprol XL
#HLD--cont zetia and atorvastatin
#hx of CVA in past--cont asa/plavix
#IBS--bentyl PRN for spasms
#GERD--PPI
#DVT proph
- SCDs
#code status -- FULL CODE
[2024-10-21] MEDS: FLUSH (NSS) 1 FLUSH IV (20:08)
[2024-10-21] MEDS: DUONEB 3 ML INH (20:08)
[2024-10-22] VITALS (10 sets, daily range): BP systolic 95–121; BP diastolic 47–57; BMI 29.4
--- NOTE | 2024-10-22 01:06 | PTCARENOTE ---
Pt arrived to unit from ed via stretcher. Pt ambulated from stretcher to bed on . Pt aao x3 and able to make needs known. Oriented to unit, call bello within reach. Will continue to monitor.
--- NOTE | 2024-10-22 01:46 | PTCARENOTE ---
PT has left limb alert for HX breast cancer and lymph node removal
[2024-10-22] MEDS: DECADRON 6 MG IV ×2 (02:56→08:49)
[2024-10-22] MEDS: APRESOLINE 25 MG PO ×2 (02:57→07:41)
[2024-10-22] MEDS: VANCOCIN 530 MG IV (03:02)
[2024-10-22] MEDS: MUCINEX 600 MG PO ×3 (03:04→19:59)
[2024-10-22 05:36] LABS: Hematocrit 33.9 % (37.0-47.0); Mean Corp Hgb Conc. 32.4 g/dL (33.0-37.0); Mean Corpuscular Hgb 28.6 pg (27.0-31.0); Mean Corpuscular Volume 88.3 fL (81.0-99.0); Mean Platelet Volume 9.4 fL (7.4-10.4); Platelet Count 256 10^3/uL (130-400); Red Blood Cell Count 3.84 10^6/uL (4.20-5.40); Red Cell Dist. Width 14.4 % (11.5-14.5); White Blood Cell Count 8.3 10^3/uL (4.8-10.8)
[2024-10-22] MEDS: DUONEB 3 ML INH ×4 (07:36→19:18)
[2024-10-22] MEDS: ZETIA 10 MG PO (07:41)
[2024-10-22] MEDS: PLAVIX 75 MG PO (07:42)
[2024-10-22] MEDS: ASPIR LOW (ENTERIC COATED) 81 MG PO (07:42)
[2024-10-22] MEDS: LASIX 20 MG PO (07:42)
[2024-10-22] MEDS: COZAAR 50 MG PO (07:42)
[2024-10-22] MEDS: ZOSYN 50 IV ×3 (07:43→18:11)
--- NOTE | 2024-10-22 08:40 | PHA.VAN.IN ---
Assessment
- Assessment
Renal Function: Appears similar to baseline
Concomitant Antimicrobials: PO doxy, pip/tazo
AUC Dosing Plan
- Dosing Variables
Dosing Weight (kg): 68
Dosing CrCl (ml/min): 51
Vd coefficient (L/kg): 0.7
- Empiric Dosing
Initial / Loading Dose: 1500 mg - 10/22/24 ~0300
Maintenance Regimen: 1000 mg q24h - to start 0610/23/24
Estimated AUC (mcg*h/mL): 460
Estimated Peak (mcg*h/mL): 31.2
Estimated Trough (mcg/ml): 10.6
Estimated Half Life (H): 14.8
- Monitoring
No levels ordered at this time: will consider levels when pt nears steady state
Pharmacokinetics Vancomycin I
- -
Patient Age: 84
Patient Sex: Female
Vancomycin Day #: 1
Indication: Pulmonary/Respiratory
Requesting Provider: Antonieta Góemz
Height / Weight:
Height 5 ft
Actual Weight 68.3 kg
Pertinent Past Medical History: COPD on home O2
- Vital Signs / Lab Results
Temp Pulse Resp BP Pulse Ox
97.4 F 89 18 121/63 92
10/21/24 23:55 10/22/24 07:38 10/22/24 07:38 10/22/24 02:57 10/22/24 07:38
Lab Results - Hematology
10/21/24 10/22/24
15:36 05:28
WBC 12.5 H 8.3
Lab Results - Chemistry
10/21/24
15:36
BUN 21 H
Creatinine 0.7
Estimated Creat Clear 51
Albumin 4.2
[2024-10-22] MEDS: VIBRAMYCIN 100 MG PO (08:49)
[2024-10-22] MEDS: LASIX 20 MG IV (08:49)
--- NOTE | 2024-10-22 08:57 | W.PN.UPDATE ---
Update Note
Progress Note Update
Pt is being upgraded to IMU due to hypoxia. This am satting well on 6L, however after duonebs tx, sats started to drop into the 70's. Brought back up to 90's on non-rebreather, but unable to wean her back onto mid-flow. Upgrading to IMU for likely
Bipap therapy and closer monitoring. Also gave 20mg IV lasix as pt has hx of HFpEF and volume may be a contributing factor.
--- NOTE | 2024-10-22 08:59 | W.PN.HOSP.TC ---
Today's Communication/Plan
-
Upgrade to IMU
Keep O2 >88%
Wean O2 as able
Cont antibiotics
Pulm appreciated
Assessment / Plan
Assessment / Plan
The patient is an 84-year-old woman with past medical history significant for ILD on home oxygen at 2 L via nasal cannula, CHF, CVA, essential hypertension who presented to the emergency department secondary to worsening exertional dyspnea over the
past several days. Her oxygen was in the 70s at home. In the emergency department during this history and physical the patient's oxygen saturation dropped to 85% on 4 L. It was subsequently persistently low at 88% on 4 L. Her oxygen requirements
increased to 6 L per nasal cannula. Chest x-ray revealed pneumonia. WBC 12.5. Started on ceftriaxone and azithromycin in ED transitioned to vanc and zosyn. Also started on nebs and steroids.
Pt is being upgraded to IMU due to hypoxia today. This am satting well on 6L, however after duonebs tx, sats started to drop into the 70's. Brought back up to 90's on non-rebreather, but unable to wean her back onto mid-flow. Upgrading to IMU for
likely Bipap therapy and closer monitoring. Also gave 20mg IV lasix as pt has hx of HFpEF and volume may be a contributing factor.
#Acute on chronic hypoxic respiratory failure secondary to healthcare associated pneumonia
- Recent hospitalization with pneumonia in June,
- At home, on 2 L O2 baseline
- WBC 12.5, chest x-ray consistent with severe right lung pneumonia/pneumonitis, COVID flu negative
- Urine strep and Legionella (-)
- Azithromycin x 1 ceftriaxone x 1 in ED -> vancomycin day 1, Zosyn day 1, doxycycline day 1
- Tylenol as needed for fever
- Upgraded to IMU due to worsening hypoxia
- Keep O2 >88%
-1 dose 20mg IV lasix for suspected volume overload with hx HFpEF contributing to hypoxia
- Pulmonology appreciated
# COPD exacerbation
- Nebs, steroids, wean oxygen as able
- 2 L as baseline
# HFpEF
- 05/11/2024 echo 60 to 65% ejection fraction, stage II diastolic dysfunction
- Cont home lasix 20 mg PO, metoprolol
# Anemia of chronic disease
-Hemoglobin stable, monitor
#Essential hypertension
-Continue amlodipine, hydralazine, Lasix, losartan, Toprol XL
# Hyperlipidemia
-Continue Zetia and atorvastatin
#Hx CVA
-Cont asa and plavix
#IBS
-Cont bentyl prn for spasms
#GERD
-Cont PPI
#Alcohol use disorder
-Reports daily alcohol use
-Monitor for withdrawal symptoms
DVT Lovenox
Full code
Anticipated Discharge: > 48 hours
Subjective/Interval History
-
Date of Service: October 22, 2024
Objective Data
-
Labs:
Laboratory Results
10/22/24
05:28
WBC 8.3
Hgb 11.0 L
Hct 33.9 L
Plt Count 256
Vital Signs:
Vital Signs
Temp Pulse Resp BP Pulse Ox
97.5 F 90 20 108/56 92
10/22/24 08:00 10/22/24 08:00 10/22/24 08:00 10/22/24 08:00 10/22/24 07:38
Review of Systems
-
History Source: Patient
EENT: Reports No Symptoms Reported
Respiratory: Reports Trouble Breathing
Cardiac: Reports No Symptoms
Abdomen/GI: Reports No Symptoms
Genitourinary: Reports No Symptoms
Neuro: Reports No Symptoms
Physical Exam
-
General: Respiratory Distress
HEENT: Normocephalic
Respiratory: Crackles and Accessory Resp Muscle Use
Cardiac: Regular Rhythm and S1/S2
GI: Soft, Nontender, Nondistended and Normal Bowel Sounds
Musculoskeletal: Other (Slight edema bilat lower extremities )
Skin: Warm and Dry
Neuro: AO x 3
--- NOTE | 2024-10-22 09:40 | PTCARENOTE ---
Patient with POX 60-70% on 6L NC after breathing tx. 15L NRB placed and pt slowly recovered to 92-93%. Pt unable to come off of NRB after several attempts. Resident at bedside with new order to transfer to IMU. Report given to FAHEEM Dumont. Pt
transferred to IMU with RN and tech with code cart heart monitor on. Chart given to gunite nozzle operator.
--- NOTE | 2024-10-22 09:59 | PTCARENOTE ---
Patient received into room 3344 from [facility]. Patient pulled over to IMU bed but then patient needing to sit up on side of bed and tripoding due to shortness of breath. Lungs with crackles at the bases. She is breathing very shallow and tachypneic.
RN attempted to show patient breathing techniques to slow breathing. Pt also bronchospastic, consistent dry coughing, victor hugo with deep breath attempts. She remains on 15L NRB mask. RT aware patient has arrived. Pt is otherwise aaox3, in SR on monitor,
BP soft, she is continent of b/b. Pt has bandage on top of head from previous OP procedure. Assessment, care and VS as charted.
[2024-10-22] MEDS: SOLU-MEDROL PF 80 MG IV (12:58)
[2024-10-22] MEDS: LASIX 40 MG IV (12:58)
[2024-10-22 13:05] LABS: B.E. -1.8 mmol/L; HCO3 21.7 mmol/L (21-28); O2 Saturation % 97.5 % (94-98); PCO2 32 mmHg (32-35); PO2 74 mmHg (83-108); pH 7.44 (7.35-7.45)
[2024-10-22 13:51] LABS: Troponin I < 0.012 ng/ml
--- NOTE | 2024-10-22 14:01 | W.PN.UPDATE ---
Update Note
Progress Note Update
I saw and evaluated the patient. I reviewed the resident�s note and agree with findings and plan as documented in the resident�s note.
# Acute on chronic hypoxic respiratory failure
Suspected pneumonia vs ILD flare up
-Patient on chronic hypoxic respiratory failure required to do oxygen at baseline
-Chest x-ray showing right lung pneumonitis/pneumonia
-Minimal leukocytosis/afebrile
-COVID/flu negative.
-Patient started on empiric antibiotic
-In the morning today patient had worsening hypoxia and requiring nonrebreather support. Transferred to IMU for closer monitoring
-Patient with history of ILD and previous CT chest images reviewed
-Patient already on empiric IV dexamethasone, changed to Solu-Medrol 40 mg every 12 by pulmonology
#COPD Exacerbation
-Maintained on nebulizer therapy
# Anemia of chronic disease
- Hemoglobin stable at 11.7
- No active bleeding
#essential HTN--cont amlodipine, hydralazine, IV lasix, losartan, and toprol XL
#HLD--cont zetia and atorvastatin
#hx of CVA in past--cont asa/plavix
#IBS--bentyl PRN for spasms
#GERD--PPI
DVT proph - SCDs
Code status -- FULL CODE
Total time spent : 53 mins
[2024-10-22] MEDS: ZITHROMAX INFUSION 250 IV (14:41)
[2024-10-22 16:08] LABS: Lactic Acid 1.8 mmol/L (0.7-2.0)
--- NOTE | 2024-10-22 16:53 | CON.PUL ---
Consultation
Consultation Request
Date/Time Consultation Requested: 10/22/2024
Date/Time Consultation Performed: 10/22/2024
Medical History
-
Chief Complaint: Shortness of breath
History of Present Illness:
84-year-old female who is underlying COPD followed by Dr Hong on chronic oxygen at nighttime but no inhalers who also has hypertension, hyperlipidemia, presented with increasing shortness of breath felt to be pneumonia, COPD exacerbation and
possible heart failure-pulmonary consulted for shortness of breath/COPD 06/22/2024.. Patient states that she does feel better. She has chronic dyspnea on exertion. She denies itching, chest pain, chest tightness, mucous, pleurisy, abdominal pain,
nausea, lower extremity swelling or focal weakness.
Past Medical History
Past Medical History: None ( CAD. COPD on 2 L oxygen at night, no inhalers. ILD. DANIELA. GERD. Hyperlipidemia. TIA. Hypertension. PAD. Thyroid nodules. Osteopenia. Spinal stenosis. Venous insufficiency. History CVA. Prediabetes.)
Social History
Tobacco: Former Smoker ( 2.5 packs per day �30 years, quit 1984)
Alcohol: None
Drug: None
Living: With Family
Occupational Exposures: . No known asbestos exposure
Environmental Exposures: . No known tuberculosis exposure
Family History
Family History: Other (. Father-premature CAD. Mother-CVA, CHF and CAD)
Allergies / Home Medications
Allergies
Allergy/AdvReac Type Severity Reaction Status Date / Time
hydrocodone [From Vicodin] Allergy Unknown Verified 10/21/24 15:48
labetalol Allergy Unknown Verified 10/21/24 15:48
Home Medications
�Medication �Instructions �Recorded �Confirmed �Last Taken �Type
atorvastatin 40 mg tablet 40 mg PO QPM High cholesterol 11/30/20 10/21/24 06/19/24 History
ezetimibe 10 mg tablet 10 mg PO DAILY High cholesterol 11/30/20 10/21/24 06/18/24 History
furosemide 20 mg tablet (Lasix) 20 mg PO DAILY Fluid 06/15/23 10/21/24 06/19/24 History
Retention/Swelling
hydralazine 25 mg tablet 25 mg PO TID Blood Pressure 06/15/23 10/21/24 06/19/24 History
losartan 50 mg tablet 50 mg PO DAILY Blood Pressure 06/15/23 10/21/24 06/18/24 History
metoprolol succinate 25 mg 25 mg PO QPM Blood Pressure 06/15/23 10/21/24 06/19/24 History
tablet,extended release 24 hr
(Toprol XL)
dicyclomine 20 mg tablet 20 mg PO DAILYPRN PRN intestinal 06/19/24 10/21/24 Unknown History
spasms
aspirin 81 mg tablet,delayed 81 mg PO DAILY Blood clot 06/23/24 10/21/24 06/19/24 Rx
release prevention/tx #0 tabs
clopidogrel 75 mg tablet 75 mg PO DAILY Blood clot 06/23/24 10/21/24 06/19/24 Rx
prevention/tx #90 tabs
acetaminophen 650 mg 650 mg PO Q31USAH PRN mild pain 10/21/24 10/21/24 Unknown History
tablet,extended release (Tylenol 8
Hour)
amlodipine 10 mg tablet 10 mg PO QPM Blood Pressure 10/21/24 10/21/24 Unknown History
peg 400-propylene glycol (PF) 0.4 1 drp BOTH EYES Q6HPRN PRN dry eyes 10/21/24 10/21/24 Unknown History
%-0.3 % eye drops in a dropperette
(Systane (PF))
Review of Systems
Vitals / Labs / Diagnostic Testing
Vital Signs
Temp Pulse Resp BP Pulse Ox
97.8 F 95 36 102/49 94
10/22/24 15:06 10/22/24 15:43 10/22/24 15:43 10/22/24 12:58 10/22/24 15:45
Lab Data
10/22/24 05:28
10/21/24 15:36
Laboratory Results
10/22/24
12:57
pH 7.44
pCO2 32
pO2 74 L
HCO3 21.7
O2 Delivery Level Not Reportable
Microbiology
10/22/24 09:47 Nose Nasal Screen MRSA (PCR) - Final
MRSA not detected - performed by PCR methodology.
10/22/24 09:47 Urine Legionella Urinary Antigen - Final
Negative for Legionella pneumophila Serogroup 1 antigen.
A negative result does not rule out the possiblity of
Legionella infection due to other serogroups or species of
Legionella. Clinical correlation is recommended.
10/22/24 09:47 Urine Streptococcus pneumoniae Antigen (M - Final
Negative for Streptococcus pneumoniae antigen.
A negative result does not exclude infection with
Streptococcus pneumoniae. Clinical correlation is
recommended.
Diagnostic Testing:
Assessment
-
#1. Acute on chronic hypoxic respiratory failure. 7.44, 32, 74 on mid flow oxygen
-Worsening bilateral interstitial opacities, right greater than left more suggestive of volume overload and possibly infection rather than interstitial lung disease. Patient also has severe underlying emphysematous COPD, on home oxygen.
-Continue aggressive diuresis, broad-spectrum antibiotics, bronchodilators and steroids
-Switch to high flow nasal cannula
-Patient does not want to use BiPAP as she is claustrophobic
-Patient is at risk of requiring intubation and mechanical ventilation. With her underlying severe COPD, oxygen dependence, patient's risk of ventilator dependency is quite high. I discussed that with the patient and updated her son also for
ongoing goals of care discussion.
-I reviewed patient's prior CT scan and rapid progression of interstitial lung disease appears less likely. I would favor aggressively diuresing first and see if follow-up imaging improves as this might be related to pulmonary edema.
#2. Acute on chronic heart failure exacerbation with preserved ejection fraction. Echo in April 2024, LVEF 60 to 65% with grade 2 diastolic dysfunction.
-Give additional 40 mg IV stat Lasix, patient already received 20 earlier
-BNP is elevated, strict input and output
-Continue 40 mg IV twice daily as tolerated
-Follow-up chest x-ray in a.m. troponin x 2 unremarkable
#3. Suspected bilateral pneumonia
-MRSA screen negative, influenza and COVID screen negative. Legionella and strep pneumo antigen negative
-Continue IV vancomycin and Zosyn
-Continue steroids considering severity of pneumonia
#4. Acute on chronic COPD exacerbation, baseline home O2 dependent with severely reduced DLCO.
-Continue high flow nasal cannula, DuoNeb scheduled as well as steroids
-Patient at high risk of needing noninvasive versus invasive positive pressure ventilation
Conditions present prior to admission:
CAD.
COPD on 2 L oxygen at night, no inhalers.
ILD.
DANIELA.
GERD.
Hyperlipidemia.
TIA.
Hypertension.
PAD.
Thyroid nodules.
Osteopenia.
Spinal stenosis.
Venous insufficiency.
History CVA.
Prediabetes.
Breast cancer/lumpectomy/XRT.
Migraines.
Cervical cancer.
Hysterectomy. Tonsillectomy. Right carotid endarterectomy 2017. Skin most surgery 2020. RUE pseudoaneurysm repair. Cholecystectomy.
Patient last saw Dr. Hong on 10/20/2023-will recommend appointment after this discharge
I met with patient's son also and updated him about patient's clinical condition.
Total time spent on this consultation/encounter _65___ minutes which includes review of history, physical exam, medications, laboratory data, personal review of imaging, extensive review of outpatient records, discussion with care team and
respiratory therapy.
Diagnostic data:
Chest x-ray 06/22/23-moderate to severe changes of emphysema, small bilateral pleural effusions.
CT chest 06/22/23-minimal right pleural effusion, emphysematous changes,
Chest x-ray 06/19/24-CHF with possible right upper lobe pneumonia
CT chest 06/22/23: negative PE. Small right pleural effusion. Evidence of emphysema with bullae bilaterally. Lower lobe opacities, slightly increased compared to September 2022, suspected atelectasis per my review. 1.7 cm thyroid nodule
������CT chest 10/03/22: negative PE. mild emphysema and interstitial changes. interstitial changes slightly worse compared to 2020
�������CXR 05/19/21:small left pleural effusion with chronic lung changes, no acute findings
�������CT chest 11/01/20: mild apical emphysema, subpleural interstitial disease, right apical pleural thickening. Slightly worse compared to 2016 per report. No significant adenopathy
�������CXR 05/19/19: moderate interstitial disease, slowly progressive compared to 2015 and 2017, decreased lung volumes
�������CXR 10/09/17: no acute findings. She has cardiomegaly and mild interstitial changes bilaterally.
�������CT chest 10/31/15: reveals mild bilateral patchy ground glass changes with mild pleural thickening and emphysema.
�������Doppler ultrasound 08/15/16: no evidence of left lower extremity DVT CXR 05/19/21:small left pleural effusion with chronic lung changes, no acute findings
�������CT chest 11/01/20: mild apical emphysema, subpleural interstitial disease, right apical pleural thickening. Slightly worse compared to 2016 per report. No significant adenopathy
�������CXR 05/19/19: moderate interstitial disease, slowly progressive compared to 2015 and 2017, decreased lung volumes
�������CXR 10/09/17: no acute findings. She has cardiomegaly and mild interstitial changes bilaterally.
�������CT chest 10/31/15: reveals mild bilateral patchy ground glass changes with mild pleural thickening and emphysema.
�������Doppler ultrasound 08/15/16: no evidence of left lower extremity DVT.
Echo 06/15/23: Mild to moderate mitral regurgitation, normal biventricular function, PA pressure 43, moderate aortic regurgitation, your pressure is decreased from 64 when compared to 05/30/23 Echo 05/08/20: normal biventricular function. Mild
aortic insufficiency, PASp 31
�������Echo 06/22/17: reveals normal biventricular function, moderate mitral regurgitation, and aortic regurgitation, PA pressure 31
Echocardiogram 05/11/24-EF 60-65%, stage II diastolic dysfunction, mild aortic stenosis
PFT 07/02/23: FVC 1.46/76%, FEV1 1.22/87%, ratio 84. TLC 2.40/56%, DLCO 4.66/28%. Moderate restriction with severe gas exchange defect. This is stable
�������PFT 11/10/22: FVC 1.37/70%, FEV1 1.14/80%, ratio 83. TLC 2.41/56%, DLCO 4.56/27%. Moderate restriction with severe gas exchange defect. Compared to 2021, stable. This has worsened compared 2019
�������PFT 10/18/21: FVC 1.55/77%, FEV1 1.26/86%, ratio 81. TLC 2.64/62%, DLCO 6.3/37%.. When compared to 2019, DLCO is decreased from 8.27-6.30.
�������Cesar 06/17/21: FVC 1.45/71%, FEV1 1.22/81%, ratio 84. There is mild reactive airways disease.
�������Wray 11/05/20: FVC 1.57/75%, FEV1 1.22/79%, ratio 83
�������Cesar 05/08/20: FVC 1.54/72%, FEV1 1.35/86%, ratio 88 When compared to prior PFT, FVC has decreased from 1.70-1.54 in the last year, likely insignificant.
�������PFT 05/05/19: FVC 1.70/81%, FEV1 1.40/92%,Ratio 84, TLC 2.73/64%, DLCO 8.27/48%. When compared to prior study, FEV1 has slightly decreased.
�������PFT 06/02/17: FVC 1.83/83%, FEV1 1.55/95% ratio 85, TLC 3.45/81%, and DLCO 7.73/44% predicted. When compared to prior pulmonary function test, lung capacity has improved, diffusion capacity decreased.
--- NOTE | 2024-10-22 17:22 | W.PN.UPDATE ---
Update Note
Progress Note Update
Goal of care discussion with all patient family ember presented to room at bedside
Myself and few hours before Dr. Devries/pulper operator has discussed with patient that patient have advanced pulmonary pathology, likely ILD although possibility of pneumonia/pulmonary edema is also causative factor
Patient currently on high flow oxygen at 55 L/min and saturating 95%, with minimal activity patient oxygen saturation down goes to an low 80s.
I have told patient family that patient may require intubation if not able to maintain oxygenation on high flow. Patient questions regarding need of ventilation/length of requirement answered. Patient remains undecided and is full code for now.
I have informed family that patient have guarded prognosis at this point and next 2-3 day will be critical to see how patient progress.
[2024-10-22] MEDS: LIPITOR 40 MG PO (18:11)
[2024-10-22] MEDS: LOVENOX 40 MG SC (18:11)
[2024-10-22] MEDS: SOLU-MEDROL PF 40 MG IV (18:11)
[2024-10-22] MEDS: TYLENOL 650 MG PO (18:25)
[2024-10-22] MEDS: ANESTHETIC LOZENGE 1 LOZENGE PO (19:59)
[2024-10-23] VITALS (12 sets, daily range): BP systolic 85–126; BP diastolic 43–76
[2024-10-23] MEDS: ZOSYN 50 IV ×2 (00:02→05:37)
[2024-10-23] MEDS: CHLORASEPTIC/SORE THROAT SPRAY 1 SPRAY PO ×2 (00:04→21:12)
[2024-10-23] MEDS: TYLENOL 650 MG PO ×2 (00:22→20:48)
--- NOTE | 2024-10-23 02:17 | PTCARENOTE ---
Assumed care for patient overnight, received report from dajuan MAYEN. AAOx3, anxious. NSR on the monitor. Soft BPs. Received pt on HFNC 55L 85%. Pt tachypneic, shallow, dyspneic on exertion and at rest. Coarse and fine crackles at the bases of the
lungs. Talked to pt about the bedpan as an alternative to the commode due to current respiratory status. Pt took some time to recover after minimal exertion using the bedpan. Utilizing the NRB for recovery. SpO2 93%. Pt has a non-productive dry
occasional cough. Pt complaining of a sore throat. Attempted a lozenge to relieve symptoms. Pt still complains of a sore throat. Phenol spray ordered and administered to ease symptoms. IV abx cont. Bandage clean, dry, and intact on the top of her
head. Call bello is within reach.
--- NOTE | 2024-10-23 03:45 | PTCARENOTE ---
Pt utilizing the NRB to be turned and placed on bedpan. Pt SpO2 dropped to 75%. Pt boosted up and HOB raised. RT bedside. Pt hanging around 88% on HFNC and NRB. Pt took a long time to recover. SpO2 91%.
[2024-10-23 05:05] LABS: Hematocrit 29.6 % (37.0-47.0); Hemoglobin 9.8 g/dL (12.0-16.0); Mean Corp Hgb Conc. 33.1 g/dL (33.0-37.0); Mean Corpuscular Hgb 28.6 pg (27.0-31.0); Mean Corpuscular Volume 86.3 fL (81.0-99.0); Mean Platelet Volume 9.8 fL (7.4-10.4); Platelet Count 287 10^3/uL (130-400); Red Blood Cell Count 3.43 10^6/uL (4.20-5.40); Red Cell Dist. Width 14.6 % (11.5-14.5); White Blood Cell Count 16.2 10^3/uL (4.8-10.8)
[2024-10-23] MEDS: SOLU-MEDROL PF 40 MG IV (05:37)
[2024-10-23 05:41] LABS: ALT (SGPT) 15 U/L (0-35); AST (SGOT) 52 U/L (14-36); Albumin 3.6 g/dl (3.5-5.0); Alkaline Phosphatase 89 U/L (38-126); Blood Urea Nitrogen 32 mg/dl (7-17); Calcium 9.8 mg/dl (8.4-10.2); Carbon Dioxide 28 mmol/L (22-30); Chloride 106 mmol/L (98-107); Estimated Creatinine Clearance 39 ml/min; Glucose 144 mg/dl (70-99); Potassium 4.1 mmol/L (3.5-5.1); Sodium 142 mmol/L (135-145); Total Bilirubin 1.3 mg/dl (0.2-1.3); Total Protein 6.3 g/dl (6.3-8.2); eGFR > 60.00
[2024-10-23] MEDS: VANCOCIN 200 IV (06:27)
[2024-10-23 06:43] LABS: B.E. 2.3 mmol/L; HCO3 26.4 mmol/L (21-28); O2 Saturation % 97.3 % (94-98); PCO2 38 mmHg (32-35); PO2 79 mmHg (83-108); pH 7.45 (7.35-7.45)
[2024-10-23 06:45] LABS: O2 Therapy high flow
--- NOTE | 2024-10-23 06:54 | W.PN.UPDATE ---
Update Note
Progress Note Update
RN reported, patient with increase work of breathing, max on High flow and NRB mask 70%, RR 45. Patient seen and evaluated, Oriented x3, addressed the need of ventilator as the next step, patient refused and agrees resuscitation route will not be
helpful at this time given the prognosis. Called son Farhan and addressed the situation, son is in agreeable with patient (mother). Addressed code status will be changed to DNR and is agreeable. patient wants all antibiotics and other treatments to
be given at this time, states she is not ready to be sedated at present, but is agreeable for morphine one dose to help with the struggle of breathing now.
[2024-10-23] MEDS: MORPHINE SULFATE 1 MG IV ×3 (06:59→21:19)
[2024-10-23] MEDS: LASIX 20 MG IV (07:37)
[2024-10-23] MEDS: DUONEB 3 ML INH (07:42)
[2024-10-23] MEDS: ATIVAN 0.5 MG IV (08:31)
[2024-10-23] MEDS: NSS (PRESERVATIVE FREE) 0.25 ML IV ×2 (08:31→20:34)
[2024-10-23] MEDS: ZETIA PO (08:57)
[2024-10-23] MEDS: MUCINEX PO (08:57)
[2024-10-23] MEDS: PLAVIX PO (08:57)
--- NOTE | 2024-10-23 08:57 | W.PN.HOSP.TC ---
Today's Communication/Plan
-
Pt is moving to comfort measures
discontinue non-related medications
Continue O2 for comfort
maintain dignity
Assessment / Plan
Assessment / Plan
The patient is an 84-year-old woman with past medical history significant for ILD on home oxygen at 2 L via nasal cannula, CHF, CVA, essential hypertension who presented to the emergency department secondary to worsening exertional dyspnea over the
past several days. Her oxygen was in the 70s at home. In the emergency department during this history and physical the patient's oxygen saturation dropped to 85% on 4 L. It was subsequently persistently low at 88% on 4 L. Her oxygen requirements
increased to 6 L per nasal cannula. Chest x-ray revealed pneumonia. WBC 12.5. Started on ceftriaxone and azithromycin in ED transitioned to vanc and zosyn. Also started on nebs and steroids.
Pt is being upgraded to IMU due to hypoxia today. This am satting well on 6L, however after duonebs tx, sats started to drop into the 70's. Brought back up to 90's on non-rebreather, but unable to wean her back onto mid-flow. Upgrading to IMU for
likely Bipap therapy and closer monitoring. Also gave 20mg IV lasix as pt has hx of HFpEF and volume may be a contributing factor.
In last 24 hrs:
-O2 requirements increased to 60L on high flow
-Status changed to DNR per pt and family wishes not to intubate
-Pt and family agreed for comfort measures
#Acute on chronic hypoxic respiratory failure secondary to healthcare associated pneumonia
- Recent hospitalization with pneumonia in June,
- At home, on 2 L O2 baseline
- WBC 12.5, chest x-ray consistent with severe right lung pneumonia/pneumonitis, COVID flu negative
- Urine strep and Legionella (-)
- Azithromycin x 1 ceftriaxone x 1 in ED -> vancomycin day 2, Zosyn day 2
- Tylenol as needed for fever
- Upgraded to IMU due to worsening hypoxia
- Keep O2 >88%
-60mg IV lasix given yesterday
- O2 requirments cont to increase to 60L on high flow - discussed with pulmonary and pt not suitable for bipap given high O2 requirments
-Pt and family okay transitioning to comfort measures as they are DNR/DNI
-Start morphine ggt and comfort measures
#Acute on chronic COPD exacerbation
- Nebs, steroids now dc on comfort measures
- 2 L as baseline
# Acute on chronic HFpEF exacerbation
- 05/11/2024 echo 60 to 65% ejection fraction, stage II diastolic dysfunction
- Cont home lasix 20 mg PO, metoprolol
-IV lasix added yesterday
-dc the above as pt is moving towards comfort measures
# Anemia of chronic disease
-Hemoglobin stable, monitor
#Essential hypertension
-Continue amlodipine, hydralazine, Lasix, losartan, Toprol XL
# Hyperlipidemia
-Continue Zetia and atorvastatin
#Hx CVA
-Cont asa and plavix
#IBS
-Cont bentyl prn for spasms
#GERD
-Cont PPI
#Alcohol use disorder
-Reports daily alcohol use
-Monitor for withdrawal symptoms
DVT Lovenox
DNR/DNI
Pt and family spoken to by hospitalist and pulmonary team and understand that the pt requires intubation for further treatment. They are okay moving towards comfort cares. Medication therapy per comfort care protocols to maintain pt dignity.
Anticipated Discharge: Within 24 hours
Subjective/Interval History
-
Date of Service: October 23, 2024
Appears in distress.
Objective Data
-
Labs:
Laboratory Results
10/23/24 10/23/24
04:48 06:37
WBC 16.2 H
Hgb 9.8 L
Hct 29.6 L
Plt Count 287
HCO3 26.4
Sodium 142
Potassium 4.1
Chloride 106
Carbon Dioxide 28
BUN 32 H
Creatinine 0.9
Glucose 144 H
Calcium 9.8
Total Bilirubin 1.3
AST 52 H
ALT 15
Alkaline Phosphatase 89
Vital Signs:
Vital Signs
Temp Pulse Resp BP Pulse Ox
98.5 F 85 28 126/56 92
10/23/24 07:15 10/23/24 07:46 10/23/24 07:46 10/23/24 07:37 10/23/24 07:47
I&O
10/22/24 10/23/24 10/24/24
06:59 06:59 06:59
Intake Total 700 / 700
Output Total 925 / 925
Balance -225 / -225
Review of Systems
-
History Source: Patient
EENT: Reports No Symptoms Reported
Respiratory: Reports Trouble Breathing
Cardiac: Reports No Symptoms
Abdomen/GI: Reports No Symptoms
Neuro: Reports No Symptoms
Physical Exam
-
General: Respiratory Distress and Appears in Distress
HEENT: Normocephalic
Respiratory: Wheezes, Crackles and Accessory Resp Muscle Use
Cardiac: Regular Rhythm and S1/S2
GI: Soft, Nontender, Nondistended and Normal Bowel Sounds
Musculoskeletal: No Edema
Skin: Warm and Dry
Neuro: AO x 3
Psych: Anxious
[2024-10-23] MEDS: ASPIR LOW (ENTERIC COATED) PO (09:04)
--- NOTE | 2024-10-23 09:06 | PHA.VAN.FU ---
Vancomycin Assessment / Plan
- Assessment
Renal Function: Stable
WBC's are: Trending Up (8.3->16.2)
In the past 24 hrs, patient has been: Afebrile
Concomitant Antimicrobials: pip/tazo
- Dosing Plan
Continue: vancomycin 1000 mg q24 - first maint dose 0600 10/23/24
- Monitoring Plan
No level(s) ordered at this time: consider levels when pt reaches ss
- Follow Up
Pharmacy will continue to follow.
Vancomycin Follow UP
- -
Patient Age: 84
Patient Sex: Female
Vancomycin Day #: 2
Indication: Pulmonary/Respiratory
Requesting Provider: Antonieta Gómez
Height / Weight:
Height 5 ft
Actual Weight 68.2 kg
Pertinent Past Medical History: COPD on home O2
- Vital Signs / Lab Results
Temp Pulse Resp BP Pulse Ox
98.5 F 85 28 126/56 92
10/23/24 07:15 10/23/24 07:46 10/23/24 07:46 10/23/24 07:37 10/23/24 07:47
Lab Results - Hematology
10/21/24 10/22/24 10/23/24
15:36 05:28 04:48
WBC 12.5 H 8.3 16.2 H
Lab Results - Chemistry
10/21/24 10/23/24
15:36 04:48
BUN 21 H 32 H
Creatinine 0.7 0.9
Estimated Creat Clear 51 39
Albumin 4.2 3.6
10/22/24 10/22/24
13:14 15:48
Lactic Acid Cancelled 1.8
Microbiology Results
10/22/24 09:47 Nasal Screen MRSA (PCR) - Final
Nose MRSA not detected - performed by PCR methodology.
04/05/25 09:47 Legionella Urinary Antigen - Final
Urine Negative for Legionella pneumophila Serogroup 1 antigen.
A negative result does not rule out the possiblity of
Legionella infection due to other serogroups or species of
Legionella. Clinical correlation is recommended.
Streptococcus pneumoniae Antigen (M - Final
Negative for Streptococcus pneumoniae antigen.
A negative result does not exclude infection with
Streptococcus pneumoniae. Clinical correlation is
recommended.
--- NOTE | 2024-10-23 10:41 | W.PN.PUL3 ---
Today's Communication / Plan
-
-IV Lasix if blood pressure tolerates
-Continue goals of care discussions, recommend more comfort focused care as patient is in respiratory distress despite high flow nasal cannula and nonrebreather with profound hypoxemia, and has opted for DNR/DNI code status
Assessment
-
Patient is a 84-year-old female with known history of severe COPD, home oxygen dependent who was admitted to the hospital with suspected COPD exacerbation with pneumonia. 10/22, she developed worsening shortness of breath and pulmonary consultation
was requested for further input. Patient was noted to have bilateral interstitial opacities concerning for cardiogenic versus noncardiogenic pulmonary edema and pneumonia. Patient since has progressively worsening severe hypoxia which has been
quite resistant to treatment with initially mid flow subsequently transitioned to high flow and currently on high flow as well as nonrebreather.
#1. Acute on chronic severe hypoxic respiratory failure. 7.4 on high flow as well as nonrebreather consistent with severe hypoxia, PF ratio around 79
-Worsening bilateral interstitial opacities, right greater than left more suggestive of volume overload and possibly infection rather than interstitial lung disease. Patient also has severe underlying emphysematous COPD, on home oxygen.
-Continue diuresis (limited by borderline blood pressure), broad-spectrum antibiotics, bronchodilators and steroids
-Currently on HFNC as well as Non-rebreather mask
-Patient did not want to use BiPAP as she is claustrophobic. Also with profound hypoxia, she might desaturate further with BIPAP. pCO2 is normal.
-I met with patient as well as family again today. She has moderate respiratory distress with accessory muscle use currently on high flow and nonrebreather with severely reduced PF ratio. Patient has opted not to proceed with intubation and
mechanical ventilation and is currently DNR/DNI. With her underlying oxygen dependent severe COPD with emphysema and severely reduced DLCO, high risk of ventilator dependence or a very difficult to wean is quite high if she were to be intubated. I
discussed with the patient regarding trial of morphine and even possibly some Ativan as needed as patient is quite anxious, currently visibly struggling with air hunger. I also discussed with the primary team, continuing ongoing discussions
regarding possible more comfort focused therapies.
#2. Acute on chronic heart failure exacerbation with preserved ejection fraction. Echo in April 2024, LVEF 60 to 65% with grade 2 diastolic dysfunction.
-Lasix currently held likely related to low normal blood pressure
-All antihypertensive medications are on hold
#3. Suspected bilateral pneumonia
-MRSA screen negative, influenza and COVID screen negative. Legionella and strep pneumo antigen negative
-Continue IV vancomycin and Zosyn
-Continue steroids considering severity of pneumonia
#4. Acute on chronic COPD exacerbation, baseline home O2 dependent with severely reduced DLCO.
-Continue high flow nasal cannula, DuoNeb scheduled as well as steroids
-Prognosis is very poor.
Conditions present prior to admission:
CAD.
COPD on 2 L oxygen at night, no inhalers.
ILD.
DANIELA.
GERD.
Hyperlipidemia.
TIA.
Hypertension.
PAD.
Thyroid nodules.
Osteopenia.
Spinal stenosis.
Venous insufficiency.
History CVA.
Prediabetes.
Breast cancer/lumpectomy/XRT.
Migraines.
Cervical cancer.
Hysterectomy. Tonsillectomy. Right carotid endarterectomy 2017. Skin most surgery 2020. RUE pseudoaneurysm repair. Cholecystectomy.
Patient last saw Dr. Hong on 10/20/2023.
Total time spent on this consultation/encounter _38___ minutes which includes review of history, physical exam, medications, laboratory data, personal review of imaging, extensive review of outpatient records, discussion with care team and
respiratory therapy.
Diagnostic data:
Chest x-ray 06/22/23-moderate to severe changes of emphysema, small bilateral pleural effusions.
CT chest 06/22/23-minimal right pleural effusion, emphysematous changes,
Chest x-ray 06/19/24-CHF with possible right upper lobe pneumonia
CT chest 06/22/23: negative PE. Small right pleural effusion. Evidence of emphysema with bullae bilaterally. Lower lobe opacities, slightly increased compared to September 2022, suspected atelectasis per my review. 1.7 cm thyroid nodule
������CT chest 10/03/22: negative PE. mild emphysema and interstitial changes. interstitial changes slightly worse compared to 2020
�������CXR 05/19/21:small left pleural effusion with chronic lung changes, no acute findings
�������CT chest 11/01/20: mild apical emphysema, subpleural interstitial disease, right apical pleural thickening. Slightly worse compared to 2016 per report. No significant adenopathy
�������CXR 05/19/19: moderate interstitial disease, slowly progressive compared to 2015 and 2017, decreased lung volumes
�������CXR 10/09/17: no acute findings. She has cardiomegaly and mild interstitial changes bilaterally.
�������CT chest 10/31/15: reveals mild bilateral patchy ground glass changes with mild pleural thickening and emphysema.
�������Doppler ultrasound 08/15/16: no evidence of left lower extremity DVT CXR 05/19/21:small left pleural effusion with chronic lung changes, no acute findings
�������CT chest 11/01/20: mild apical emphysema, subpleural interstitial disease, right apical pleural thickening. Slightly worse compared to 2016 per report. No significant adenopathy
�������CXR 05/19/19: moderate interstitial disease, slowly progressive compared to 2015 and 2017, decreased lung volumes
�������CXR 10/09/17: no acute findings. She has cardiomegaly and mild interstitial changes bilaterally.
�������CT chest 10/31/15: reveals mild bilateral patchy ground glass changes with mild pleural thickening and emphysema.
�������Doppler ultrasound 08/15/16: no evidence of left lower extremity DVT.
Echo 06/15/23: Mild to moderate mitral regurgitation, normal biventricular function, PA pressure 43, moderate aortic regurgitation, your pressure is decreased from 64 when compared to 05/30/23 Echo 05/08/20: normal biventricular function. Mild
aortic insufficiency, PASp 31
�������Echo 06/22/17: reveals normal biventricular function, moderate mitral regurgitation, and aortic regurgitation, PA pressure 31
Echocardiogram 05/11/24-EF 60-65%, stage II diastolic dysfunction, mild aortic stenosis
PFT 07/02/23: FVC 1.46/76%, FEV1 1.22/87%, ratio 84. TLC 2.40/56%, DLCO 4.66/28%. Moderate restriction with severe gas exchange defect. This is stable
�������PFT 11/10/22: FVC 1.37/70%, FEV1 1.14/80%, ratio 83. TLC 2.41/56%, DLCO 4.56/27%. Moderate restriction with severe gas exchange defect. Compared to 2021, stable. This has worsened compared 2019
�������PFT 10/18/21: FVC 1.55/77%, FEV1 1.26/86%, ratio 81. TLC 2.64/62%, DLCO 6.3/37%.. When compared to 2019, DLCO is decreased from 8.27-6.30.
�������[place] 06/17/21: FVC 1.45/71%, FEV1 1.22/81%, ratio 84. There is mild reactive airways disease.
�������[place] 11/05/20: FVC 1.57/75%, FEV1 1.22/79%, ratio 83
�������[place] 05/08/20: FVC 1.54/72%, FEV1 1.35/86%, ratio 88 When compared to prior PFT, FVC has decreased from 1.70-1.54 in the last year, likely insignificant.
�������PFT 05/05/19: FVC 1.70/81%, FEV1 1.40/92%,Ratio 84, TLC 2.73/64%, DLCO 8.27/48%. When compared to prior study, FEV1 has slightly decreased.
�������PFT 06/02/17: FVC 1.83/83%, FEV1 1.55/95% ratio 85, TLC 3.45/81%, and DLCO 7.73/44% predicted. When compared to prior pulmonary function test, lung capacity has improved, diffusion capacity decreased.
Subjective Data
-
Date of Service:
Date of Service: October 23, 2024
Subjective:
Patient continues to have moderate respiratory distress on high flow as well as nonrebreather.
Review of Systems
Genitourinary: Other (No new symptoms except as stated above.)
Objective Data
Data Reviewed
Vital Signs / I&O / Oxygen:
Vital Signs
Temp Pulse Resp BP Pulse Ox
98.5 F 98 31 85/68 93
10/23/24 07:15 10/23/24 10:00 10/23/24 10:00 10/23/24 10:00 10/23/24 10:00
Intake and Output
10/22/24 10/23/24 10/24/24
06:59 06:59 06:59
Intake Total 700 / 700
Output Total 925 / 925
Balance -225 / -225
SaO2 93
Nasal Cannula flow liters per 60
minute
Physical Exam
General: Respiratory Distress
HEENT: Normocephalic
Cardiovascular: S1-S2
Respiratory: Rhonchi and Accessory Resp Muscle Use
GI: Soft and Non Distended
Neurology: Awake and Alert
Skin: Warm
Labs/Micro/Reports
Lab Data
10/23/24 04:48
10/23/24 04:48
Laboratory Results
10/22/24 10/23/24
12:57 06:37
pH 7.44 7.45
pCO2 32 38 H
pO2 74 L 79 L
HCO3 21.7 26.4
O2 Delivery Level Not Reportable high flow
Microbiology
10/22/24 09:47 Nose Nasal Screen MRSA (PCR) - Final
MRSA not detected - performed by PCR methodology.
10/22/24 09:47 Urine Legionella Urinary Antigen - Final
Negative for Legionella pneumophila Serogroup 1 antigen.
A negative result does not rule out the possiblity of
Legionella infection due to other serogroups or species of
Legionella. Clinical correlation is recommended.
10/22/24 09:47 Urine Streptococcus pneumoniae Antigen (M - Final
Negative for Streptococcus pneumoniae antigen.
A negative result does not exclude infection with
Streptococcus pneumoniae. Clinical correlation is
recommended.
--- NOTE | 2024-10-23 10:55 | PTCARENOTE ---
Assumed care of patient at beginning of this shift from previous RN with HFNC and NRB in use; patient GRANDA and anxious. Code status changed to DNR just prior to start of this shift by early childhood education worker [employer]. Dr Silva updated on status via TT after shift
report and was up to see patient and speak with family. PO meds held; now dose of ativan ordered and given. PRN morphine ordered as well. Family at bedside and report there are a few more relatives en route to see patient. Patient calm with family
but becomes anxious when staff enters room. Remains on monitor: SR/ST to low 100s occasionally. BP currently 85/68 with MAP 76. POx 91% on max HFNC and NRB.
[2024-10-23] MEDS: ZOSYN IV (11:35)
--- NOTE | 2024-10-23 11:35 | PTCARENOTE ---
Patient's son notified this RN that all family has arrived and they are ready for comfort measures. Dr Silva notified via TT. Instructed to hold zosyn, lovenox, zithromax, solumedrol and vanco. He will update orders.
--- NOTE | 2024-10-23 11:56 | PTCARENOTE ---
Comfort measures ordered by Dr Silva. Await verification of morphine infusion and prn by pharmacy.
--- NOTE | 2024-10-23 12:14 | PTCARENOTE ---
This nurse contacted pharmacy regarding morphine infusion order as it is still in pending status and other meds still have not been verified. Pharmacist stated he will look into that and work on verifying meds.
--- NOTE | 2024-10-23 12:46 | PTCARENOTE ---
This nurse went in to flush patient's IV site in preparation to start morphine drip. Patient stated she did not want anything that would make her incoherent. Patient is Ox3. When this nurse reviewed with her that she was ordered a continuous
morphine infusion, patient hesitated. Family requested physician speak with them and patient. Dr Silva notified and up on unit. Decision made to hold off on starting morphine infusion and use prn morphine and ativan if/when needed. Family was in
agreement.
--- NOTE | 2024-10-23 12:51 | W.PN.UPDATE ---
Update Note
Progress Note Update
Primary diagnosis:
Acute hypoxemic respiratory failure
Acute on chronic COPD exacerbation
Acute on chronic heart failure exacerbation
Severe bilateral pneumonia
Secondary diagnoses:
CAD
DANIELA
GERD
Hyperlipidemia
TIA
Hypertension
PAD
Thyroid nodules
Osteopenia
Spinal stenosis
Venous insufficiency
History of CVA
Prediabetes
Breast cancer status postlumpectomy
Migraines
Cervical cancer s/p Hysterectomy
84-year-old female presents to the ED with hypoxemia. Patient has significant history of COPD and interstitial lung disease on 2 L O2 via nasal cannula at home. She noted her own oxygen was in the 70s and came to the ED. Checks x-ray revealed
severe interstitial and airspace opacities throughout the lungs, WBC 12.5. COVID, flu, Legionella, strep all negative. Patient was admitted for acute on chronic hypoxic respiratory failure secondary to healthcare associated pneumonia and acute on
chronic COPD exacerbation and started on broad-spectrum antibiotics, DuoNebs and steroids. Pulmonology was consulted. Patient also was started on Lasix for suspected acute on chronic heart failure exacerbation likely contributing to work of
breathing. Onset on 10/22/2024, patient upgraded to high IMU as oxygen requirements continued to increase. On 10/23/2024, despite maximal medical therapy, patient's oxygen requirements increased to high flow maximum setting and after a long
discussion between the preparer, the patient and her family, the patient decided against intubation. Patient and family moved to comfort measures.
Today, patient peacefully surrounded by loved ones.
--- NOTE | 2024-10-23 14:28 | CM ---
Met with pt and family members at bedside
Pt reports she lives alone in an apt; no steps to enter
Independent, some assist with home needs, ambulates with single point cane
DME - single point cane, oxygen
SNF - [facility] in past
HH - [facility]
PCP - Teresita Martinez
Pharm - [facility] on [address]
Goals of care discussed with pulmonary and physicians - poss comfort care
Family at bedside to discuss with pt
Plan - anticipate poss comfort care vs hospice
[2024-10-23] MEDS: ATIVAN 1 MG IV ×2 (15:31→20:34)
--- NOTE | 2024-10-23 17:13 | W.DCSUMMARY ---
Discharge Summary
Discharge Data
Date of Admission: 10/21/24
Date of Discharge: 10/23/24
-
Pending Results: No
Hospital Course
Primary diagnosis:
Acute hypoxemic respiratory failure
Acute on chronic COPD exacerbation
Acute on chronic heart failure exacerbation
Severe bilateral pneumonia
Secondary diagnoses:
CAD
DANIELA
GERD
Hyperlipidemia
TIA
Hypertension
PAD
Thyroid nodules
Osteopenia
Spinal stenosis
Venous insufficiency
History of CVA
Prediabetes
Breast cancer status postlumpectomy
Migraines
Cervical cancer s/p Hysterectomy
84-year-old female presents to the ED with hypoxemia. Patient has significant history of COPD and interstitial lung disease on 2 L O2 via nasal cannula at home. She noted her own oxygen was in the 70s and came to the ED. Checks x-ray revealed
severe interstitial and airspace opacities throughout the lungs, WBC 12.5. COVID, flu, Legionella, strep all negative. Patient was admitted for acute on chronic hypoxic respiratory failure secondary to healthcare associated pneumonia and acute on
chronic COPD exacerbation and started on broad-spectrum antibiotics, DuoNebs and steroids. Pulmonology was consulted. Patient also was started on Lasix for suspected acute on chronic heart failure exacerbation likely contributing to work of
breathing. Onset on 10/22/2024, patient upgraded to high IMU as oxygen requirements continued to increase. On 10/23/2024, despite maximal medical therapy, patient's oxygen requirements increased to high flow maximum setting and after a long
discussion between the contact center representative, the patient and her family, the patient decided against intubation. Patient and family moved to comfort measures.
Today, patient peacefully surrounded by loved ones.
Discharge Plan
-
Referrals:
Teresita Martinez MD [Family Provider] -
Prescriptions:
No Action
atorvastatin 40 MG tablet
40 mg PO QPM
ezetimibe 10 MG tablet
10 mg PO DAILY
furosemide [Lasix] 20 mg Tablet
20 mg PO DAILY
losartan 50 mg Tablet
50 mg PO DAILY
hydralazine 25 mg Tablet
25 mg PO TID
metoprolol succinate [Toprol XL] 25 mg Tablet Extended Release 24 Hr
25 mg PO QPM
dicyclomine 20 mg Tablet
20 mg PO DAILYPRN PRN (Reason: intestinal spasms)
clopidogrel 75 MG tablet
75 mg PO DAILY Qty: 90 1RF
aspirin 81 mg Tablet,Delayed Release (Dr/Ec)
81 mg PO DAILY Qty: 0 0RF
acetaminophen [Tylenol 8 Hour] 650 mg Tablet Extended Release
650 mg PO [id number] PRN (Reason: mild pain)
amlodipine 10 mg Tablet
10 mg PO QPM
Systane (PF) 0.4-0.3 % Dropperette
1 drp BOTH EYES Q6HPRN PRN (Reason: dry eyes)
Discharge Date and Time
Print Language: MALAY
[2024-10-23] MEDS: ROBINUL 0.2 MG IV (20:35)
--- NOTE | 2024-10-23 23:19 | PTCARENOTE ---
Pt having some head discomfort due to coughing and requesting Tylenol. CLINICAL APPEALS AUDITOR made aware and Tylenol and Chloraseptic ordered. Other PRN medication given (see MAR). Pt continues to favor Ativan over Morphine and agrees its helping with anxiety.
[2024-10-24] MEDS: ATIVAN 1 MG IV ×3 (06:18→12:31)
[2024-10-24] MEDS: NSS (PRESERVATIVE FREE) 0.25 ML IV (06:18)
[2024-10-24] MEDS: MORPHINE SULFATE 1 MG IV (06:27)
[2024-10-24] MEDS: MORPHINE SULFATE 2 MG IV ×5 (06:57→12:11)
[2024-10-24 07:18] VITALS: BP 121/50
--- NOTE | 2024-10-24 07:48 | PTCARENOTE ---
Pt appearing to get rest over night. During morning rounds Pt began to become sob and asking for Ativan (see MAR). Pt letting RN know she is sob and wants something more. Morphine given as ordered. Pt not getting as much relief as needed, after
emotional support and education about morphine Pt requested another dose. Pharmacy called and Q20min and gtt orders now active. Reassessment Pt appearing to be comfortable a this time. Report given to day RN.
[2024-10-24 09:57] VITALS: BP 136/63
--- NOTE | 2024-10-24 10:12 | HOSPNOTE ---
Spoke with son and the patient at this time is struggling and needs a morphine drip. I spoke at length about the dying process and the son is in agreement at this time since patient looks very uncomfortable. I will continue to follow and support.
--- NOTE | 2024-10-24 11:02 | W.PN.HOSP.TC ---
Addendum entered and electronically signed by Scott Rodriguez MD 10/24/24 21:26:
Attending Addendum:
I saw and evaluated the patient. I reviewed the resident�s note and agree with findings and plan as documented in the resident�s note. Sub: patient intermittently alert. responding to my voice. per nursing appeared uncomfortable. given mophine bolus
with success. Seen with daughter. 'I feel ok' Full 12 point ROS unable to obtain Exam: Vitals reviewed in chart GEN-mild resp distress heart tachycardic lungs decreased at abses abd soft LE no edema
#Acute on chronic hypoxic respiratory failure secondary to HCAP
- hospice c/s
- O2 requirments cont to increase on high flow-transition to NC
-Pt and family now okay transitioning to comfort measures as they are DNR/DNI
-Start morphine ggt and comfort measures give bolus morphine
- imminent once removing life sustaining efforts
#Acute on chronic COPD exacerbation
#Acute on chronic HFpEF exacerbation
#Anemia of chronic disease
#Essential hypertension
#Hyperlipidemia
#Hx CVA
#IBS
#GERD
#Alcohol use disorder
DNR/DNI
--Shortly after being seen called by nursing to pronounce- see separate note for additional details.
Patient consented to discuss by nodding yes, was with POA daughter, time spent explanation of advance directives, changes in health status, patient�s health care wishes if the patient becomes unable to make health decisions, goals of care, code
status, and prognosis 'she wouldn't want all that lets make her comfortable doc. give her some morphine'- 16 minutes
Time spent coordinating care, review of plan of care with resident, personally reviewed previous records in EMR, med rec, labs, radiology, d/w nursing, family total time documented is exclusive of any additional time listed that was spent in advance
care planning discussion/ and pronouncement -40� minutes
Original Note:
Today's Communication/Plan
-
Continue comfort measures
Assessment / Plan
Assessment / Plan
The patient is an 84-year-old woman with past medical history significant for ILD on home oxygen at 2 L via nasal cannula, CHF, CVA, essential hypertension who presented to the emergency department secondary to worsening exertional dyspnea over the
past several days. Her oxygen was in the 70s at home. In the emergency department during this history and physical the patient's oxygen saturation dropped to 85% on 4 L. It was subsequently persistently low at 88% on 4 L. Her oxygen requirements
increased to 6 L per nasal cannula. Chest x-ray revealed pneumonia. WBC 12.5. Started on ceftriaxone and azithromycin in ED transitioned to vanc and zosyn. Also started on nebs and steroids.
- Per family patient's wishes, continue comfort measures. Patient is comfortable.
Anticipated Discharge: Today
Subjective/Interval History
-
Date of Service: October 24, 2024
Objective Data
-
Vital Signs:
Vital Signs
Temp Pulse Resp BP Pulse Ox
98.7 F 69 26 126/76 93
10/24/24 07:29 10/23/24 22:00 10/23/24 22:00 10/23/24 20:00 10/23/24 22:00
I&O
10/23/24 10/24/24 10/25/24
06:59 06:59 06:59
Intake Total 700 / 700 0 / 0
Output Total 925 / 925 350 / 350
Balance -225 / -225 -350 / -350
Review of Systems
-
History Source: Patient and Family
Constitutional: Reports No Symptoms
EENT: Reports No Symptoms Reported
Respiratory: Reports No Symptoms
Cardiac: Reports No Symptoms
Abdomen/GI: Reports No Symptoms
Breast: Reports No Symptoms
Genitourinary: Reports No Symptoms
Musculoskeletal: Reports No Symptoms
Skin: Reports No Symptoms
Neuro: Reports No Symptoms
Endocrine: Reports No Symptoms
Hematologic / Lymphatic: Reports No Symptoms
Allergy / Immunology: Reports No Symptoms
[2024-10-24] MEDS: MORPHINE 100 IV (11:20)
--- NOTE | 2024-10-24 14:49 | W.PN.DEATH ---
Addendum entered and electronically signed by Scott Rodriguez MD 10/24/24 21:27:
Read reviewed and agree
Foreign Rodriguez MD
Original Note:
Pronouncement of
-
Called to see patient to pronounce.
No spontaneous heart tones or respirations noted.
Patient not responsive to verbal stimuli.
Patient is pronounced .
Time of : 12:56
Date of : 10/24/24
Cause of : Acute hypoxemic respiratory failure
Family Notified: Yes
--- NOTE | 2024-10-24 14:59 | PTCARENOTE ---
pt without breathing or respirations noted at 1245. family at bedside. physician notified. pronounced. post mortem care being done and kidney one called.
--- NOTE | 2024-10-24 18:40 | W.DCSUMMARY ---
Addendum entered and electronically signed by Scott Rodriguez MD 10/24/24 21:28:
Read reviewed and agree. Family consoled. Transitioned to hospice prior to .
Foreign Rodriguez MD
Original Note:
Documented by User: Dalia Hawthorne MD, Resident 10/24/24 20:41
Discharge Summary
Discharge Data
Date of Admission: 10/21/24
Date of Discharge: 10/24/24
-
Pending Results: No
Hospital Course
Primary diagnosis:
Acute hypoxemic respiratory failure
Acute on chronic COPD exacerbation
Acute on chronic heart failure exacerbation
Severe bilateral pneumonia
Secondary diagnoses:
CAD
DANIELA
GERD
Hyperlipidemia
TIA
Hypertension
PAD
Thyroid nodules
Osteopenia
Spinal stenosis
Venous insufficiency
History of CVA
Prediabetes
Breast cancer status postlumpectomy
Migraines
Cervical cancer s/p hysterectomy
84-year-old female who presented to [place] ED with hypoxemia. Patient has significant history of COPD and interstitial lung disease on 2 L O2 via nasal cannula at home, CHF, CVA, essential hypertension. She noted her home oxygen saturation was
in the 70s and came to the ED. Chest x-ray revealed severe interstitial and airspace opacities throughout the lungs, WBC elevated at 12.5. COVID, flu, Legionella, strep all negative. Patient was admitted for acute on chronic hypoxic respiratory
failure secondary to healthcare associated pneumonia (due to recent hospitalization less than 3 months ago) and acute on chronic COPD exacerbation and was started on broad-spectrum antibiotics, DuoNebs and steroids. Pulmonology was consulted.
Patient was also started on IV Lasix for suspected acute on chronic heart failure exacerbation likely contributing to work of breathing. On 10/22/2024, patient was upgraded to IMU as oxygen requirements continued to increase. On 10/23/2024, despite
maximal medical therapy, patient's oxygen requirements increased to high flow maximum setting and after a long discussion between the guncotton packer, the patient and her family, the patient decided against intubation. Patient and family were in
agreement with comfort measures.
Today, patient was made comfortable on morphine drip and peacefully surrounded by loved ones. was pronounced at 12:56 PM.
Discharge Plan
-
Patient Disposition:
Date/Time
Date/Time: 10/24/24 12:56
Discharge Date and Time
Discharge Date/Time: 10/24/24 15:57
Print Language: MOHAWK

Documented by User: Scott Rodriguez MD 10/24/24 21:15
Discharge Summary
Discharge Data
Date of Admission: 10/21/24
Date of Discharge: 10/24/24
Discharge Plan
-
Patient Disposition:
Date/Time
Date/Time: 10/24/24 12:56
Discharge Date and Time
Discharge Date/Time: 10/24/24 15:57
Print Language: MOHAWK
== END 2024-10-24 15:57 | disposition expired | DRG 193 ==
LOC: IMU 19:21
PROVIDERS: Hospitalist; Nurse Practitioner Gerontology; Registered Nurse; ADMITTING PHYSICIAN Internal Medicine; ATTENDING PHYSICIAN Family Medicine; EMERGENCY PHYSICIAN Emergency Medicine; FAMILY PHYSICIAN Family Medicine; OTHER PHYSICIAN Internal Medicine
DX: J18.9 Pneumonia, unspecified organism (principal); I50.33 Acute on chronic diastolic (congestive) heart failure; J96.21 Acute and chronic respiratory failure with hypoxia; J44.0 Chronic obstructive pulmonary disease with (acute) lower respiratory infection; J44.1 Chronic obstructive pulmonary disease with (acute) exacerbation; D63.8 Anemia in other chronic diseases classified elsewhere; I11.0 Hypertensive heart disease with heart failure; E78.00 Pure hypercholesterolemia, unspecified; K58.9 Irritable bowel syndrome, unspecified; K21.9 Gastro-esophageal reflux disease without esophagitis; Z66 Do not resuscitate; Z86.73 Personal history of transient ischemic attack (TIA), and cerebral infarction without residual deficits; Z51.5 Encounter for palliative care; Z11.52 Encounter for screening for COVID-19; Z87.891 Personal history of nicotine dependence; E04.2 Nontoxic multinodular goiter; G43.909 Migraine, unspecified, not intractable, without status migrainosus; G47.33 Obstructive sleep apnea (adult) (pediatric); I25.10 Atherosclerotic heart disease of native coronary artery without angina pectoris; I87.2 Venous insufficiency (chronic) (peripheral); J43.9 Emphysema, unspecified; Z90.710 Acquired absence of both cervix and uterus; Z99.81 Dependence on supplemental oxygen
CPT/HCPCS: 36600; 71045; 71046; 80053; 82805; 83605; 83880; 84484; 85025; 85027; 87070; 87205; 87449; 87641; 87811; 87899; 93005; 94640; 96365; 96375; 99285